=== PATIENT | female | born 1945 | race Caucasian/White ===

== ENCOUNTER 2019-09-23 12:03 | Emergency (ER) | payer MEDICARE, SELFPAY ==
--- NOTE | ~2019-09-23 | CT_ITS ---
EXAMINATION: CTA chest PE protocol DATE: 09/23/2019 14:24 INDICATION: Right chest pain. Shortness of breath. TECHNIQUE: Computed tomography angiography (CTA) of the chest was performed with 100 mL Omnipaque-350 intravenous contrast timed to evaluate the pulmonary arteries. Coronal maximum intensity projection 3D-reconstructions were created by the technologist. Automated exposure control and iterative reconst ruction technique were employed. Exam dose: 161.49 mGy-cm total exam DLP. COMPARISON: 09/15/2017 CT pulmonary scan FINDINGS: There is diagnostic contrast enhancement of the pulmonary arteries and no evidence of pulmo nary embolism. No thoracic aortic aneurysm or dissection. Normal heart size. No pericardial or pleural effusion. No hilar or mediastinal mass lesion or lymphadenopathy. There are calcified pulmonary granulomas, calcified hilar and mediastinal nodes as well as calcified granulomas of the liver and spleen, consistent with old granulomatous disease. Severe emphysematous changes of the lungs. Right and to a lesser extent posterior left apical scarrin g. There is focal infiltrate/atelectasis with air bronchograms in the superior segment of the left lower lobe, improved from the prominent consolidation noted in the superior segment particularly on 018, possibly some residual or new infiltrate or chronic residual scarring. There is mild focal infiltrate, atelectasis and/or scarring along the posterior aspect of the posteri or segment right upper lobe adjacent to the greater fissure and chest wall. IMPRESSION: No evidence of pulmonary embolism Severe emphysema Focal infiltrate, atelectasis or very possibly scarring in the superior segment of the left lower lob e, considerably improved compared to 09/15/2017 Mild focal infiltrate, atelectasis and/or scarring in the posterior segment of the right upper lobe Mild minimal posterior segment right upper lobe infiltrate or atelectasis along the greater fissure. Reviewed, dictated and finalized at [facility]. Reviewed, dictated and finalized at location [facility]. IMPRESSION: No evidence of pulmonary embolism Severe emphysema Focal infiltrate, atelectasis or very possibly scarring in the superior segment of the left lower lobe, considerably improved compared to 09/15/2017 Mild focal infiltrate, atelectasis and/or scarring in the posterior segment of the right upper lobe Mild minimal posterior segment right upper lobe infiltrate or atelectasis along the greater fissure.
--- NOTE | ~2019-09-23 | XR_ITS ---
XR chest 1V portable DATE: 09/23/2019 13:06 INDICATION: Chest pain TECHNIQUE: Portable upright AP chest on 09/23/2019 at 1305 hours COMPARISON: 09/15/2017 PA and lateral chest FINDINGS: There is prominent bilateral hyperinflation with flattening of the diaphragm, consistent wi th COPD. Normal heart size. Aortic calcification. Old pulmonary granulomatous disease. No pulmonary consolidation, significant pleural effusion, pulmonary vascular congestion or pneumothor ax is evident. IMPRESSION: COPD Reviewed, dictated and finalized at location [facility]. IMPRESSION: COPD
[2019-09-23 12:03] VITALS: BP 127/67; PULSE 102; RESP 24; TEMP 37.6; O2SAT 100
--- NOTE | 2019-09-23 12:30 | ECG_ITS ---
Measurements Intervals [place] Rate: 96 P: 79 ID: [id number] QRS: 74 QRSD: 121 T: 54 QT: 348 QTc: 440 Interpretive Statements SINUS RHYTHM RIGHT BUNDLE BRANCH BLOCK BASELINE ARTIFACT- I, II ABNORMAL ECG Electronically Signed On 09-23-2019 16:52:33 CDT by Moises Prieto D.O.
--- NOTE | 2019-09-23 12:31 | ED.CHESTPAIN ---
HPI - Chest Pain General Chief Complaint: Chest Pain Stated Complaint: chest pain Time Seen by Provider: 09/23/19 12:12 Source: patient and family Mode of arrival: EMS Limitations: no limitations History of Present Illness HPI narrative: Right upper chest pain, sharp, stabbing started yesterday. Has been constant since. Patient denies any fever, chills, nausea, vomiting, COVID-19 exposure. Patient denies any difficulty breathing. History of COPD, on 5 L oxygen, patent patient still smoking, lives alone. Brought to the emergency room by ambulance with her daughter who is at the bedside right now. Patient uses a walker at home. Patient reports that the pain gets worse with certain movement. Nothing make it better. Related Data Allergies Allergy/AdvReac Type Severity Reaction Status Date / Time omeprazole Allergy Mild Unknown Verified 09/23/19 12:25 acetaminophen Allergy Unknown Hives / Verified 09/23/19 12:25 Red Face codeine Allergy Unknown Hives / Verified 09/23/19 12:25 Red Face ibuprofen Allergy Unknown Hives / Verified 09/23/19 12:25 Red Face orphenadrine Allergy Unknown Unknown Verified 09/23/19 12:25 propacetamol Allergy Unknown Hives / Verified 09/23/19 12:25 Red Face ANTIPARKINSON Allergy Mild Unknown Uncoded 09/23/19 12:25 MEGLEMMON Allergy Unknown Hives / Uncoded 09/23/19 12:25 Red Face RUFEN AdvReac Severe HIVES Uncoded 09/23/19 12:25 Review of Systems Review of Systems: Narrative: CONSTITUTIONAL: Denies fever, chills, or sweats. EYES: Denies visual changes, redness, or discharge. ENT: Denies rhinorrhea, congestion, sore throat, or otalgia. CARDIOVASCULAR: Denies chest pain, palpitations, or edema. RESPIRATORY: Denies cough or dyspnea. GASTROINTESTINAL: Denies abdominal pain, nausea, vomiting, or diarrhea. GENITOURINARY: Denies dysuria or hematuria. SKIN: Denies rash or itching. MUSCULOSKELETAL: Denies back pain, joint pain, or myalgia. NEUROLOGIC: Denies headache, numbness, or weakness. PSYCHIATRIC: Denies anxiety or depression. [facility] Family History Family History Father Cerebrovascular accident, Onset Age: 52 Patient's father is Mother Patient's mother is Social History Social History Second hand tobacco smoke exposure: Yes Smoking end date: 05/02/09 Alcohol intake: never Gender identity (if verbalized by the patient): Female Exam Narrative: Exam Narrative: General appearance: Well-developed, well-nourished Skin: Normal color Head: Normocephalic, nontraumatic Eyes: Clear conjunctiva ENT: Oropharynx normal, ears normal, nose normal Neck: Supple, nontender Chest and respiratory: Airway patent, no respiratory distress, no accessory muscle use, no rash Heart: Regular rate/rhythm Abdomen: Soft, nontender, no organomegaly, quiet bowel sounds Vascular: Normal peripheral pulses, normal capillary refill. Musculoskeletal: Normal range of motion, nontender back Neurologic: Alert and oriented ?3, SCALE BALANCER is normal as tested, no gross motor deficit Course Course Emergency Course: Stable Consultations Date: 09/23/19 Time: 14:51 Vital Signs Vital signs: Vital Signs Temperature 37.6 C 09/23/19 12:03 Pulse Rate 102 H 09/23/19 12:03 Respiratory Rate 24 H 09/23/19 12:03 Blood Pressure 127/67 09/23/19 12:03 Pulse Oximetry 100 09/23/19 12:03 Temperature 37.6 C 09/23/19 12:03 Pulse Rate 86 09/23/19 13:14 Respiratory Rate 26 H 09/23/19 13:14 Blood Pressure 107/68 09/23/19 13:14 Pulse Oximetry 100 09/23/19 13:14 [facility] -
[2019-09-23 12:46] LABS: Basophils Percent Auto 0.4 % (0.2-1.2); Eosinophils Percent Auto 0.1 % (0-4.4); Hematocrit 29.7 % (37.0-47.0); Hemoglobin 9.1 g/dL (12.0-15.0); Immature Granulocyte Absolute 0.05 K/mm3 (0.00-0.031); Immature Granulocyte Percent A 0.7 % (0-0.5); Lymphocytes Absolute Auto 0.42 K/mm3 (0.9-3.2); Lymphocytes Percent Auto 5.8 % (18.3-44.2); Mean Corpuscular HGB Conc 30.6 g/dl (32-36); Mean Corpuscular Hemoglobin 31.8 pg (26-34); Mean Corpuscular Volume 103.8 fl (80-100); Monocytes Absolute Auto 0.7 K/mm3 (0.1-0.6); Monocytes Percent Auto 9.2 % (2.6-8.5); Neutrophils Absolute Auto 6.1 K/mm3 (1.3-6.7); Neutrophils Percent Auto 83.8 % (45.5-73.1); Platelet Count Result 176 k/mm3 (150-375); Red Blood Count 2.86 M/mm3 (4.2-5.4); Red Cell Distribution Width 12.6 % (11.5-14.5); White Blood Count 7.3 K/mm3 (4.5-10.0)
[2019-09-23 12:59] LABS: Alanine Aminotransferase 8 U/L (4-35); Albumin Level 4.3 g/dL (3.5-5.1); Alkaline Phosphatase 74 U/L (38-126); Aspartate Amino Transferase 23 U/L (14-36); Bilirubin,Total 0.7 mg/dL (0.2-1.3); Blood Urea Nitrogen 19 mg/dL (7-17); Calcium 9.7 mg/dL (8.4-10.2); Carbon Dioxide > 40 mmol/L (22-30); Chloride 96 mmol/L (98-107); Estimated CRCL calculation 28 ml/min; Estimated Glomerular Filt Rate 49; Glucose 87 mg/dL (65-105); Potassium 4.5 mmol/L (3.4-5.0); Sodium 141 mmol/L (137-145)
[2019-09-23 13:02] LABS: D Dimer 0.62 ug/mL (<0.48)
[2019-09-23 13:11] LABS: NT Pro B Type Natriuretic Pept 581 PG/ML (5-100); Troponin I < 0.012 ng/mL (0.000-0.034)
[2019-09-23 13:14] VITALS: BP 107/68; PULSE 86; RESP 26; O2SAT 100
[2019-09-23 15:18] VITALS: BP 123/60; PULSE 95; RESP 26; O2SAT 100
== END 2019-09-23 16:11 | disposition home or self-care (01) ==
PROVIDERS: Emergency Provider Emergency Medicine; PCP Family Medicine
DX: R07.9 Chest pain, unspecified (principal); J43.9 Emphysema, unspecified; F17.200 Nicotine dependence, unspecified, uncomplicated; I45.10 Unspecified right bundle-branch block; Z99.81 Dependence on supplemental oxygen
CPT/HCPCS: 36415; 71045; 71275; 80053; 83880; 84484; 85025; 85380; 93005; 99284; Q9967

== ENCOUNTER 2019-09-28 10:28 | Emergency (ER) | payer MEDICARE, SELFPAY ==
--- NOTE | ~2019-09-28 | XR_ITS ---
EXAMINATION: XR chest 2V DATE: 09/28/2019 10:52 INDICATION: Chest pain. TECHNIQUE: Frontal and lateral views of the chest were obtained. COMPARISON: Chest single view 09/23/2019, chest CT 09/23/2019 FINDINGS: The lungs are hyperexpanded with lucencies and architectural distortion, consistent with se bob emphysema. There are mild airspace opacities in right mid and upper lung zones and in left midlu ng zone. Calcified left lung nodules are consistent with old granulomatous disease. No pleural effusi on or pneumothorax. The heart size is normal. IMPRESSION: 1. Stable mild airspace opacities in right mid and upper lung zones and left midlung zone, consistent with atelectasis/scarring versus pneumonia. 2. Severe emphysema. Reviewed, dictated and finalized at location A. IMPRESSION: 1. Stable mild airspace opacities in right mid and upper lung zones and left mi dlung zone, consistent with atelectasis/scarring versus pneumonia. 2. Severe emphysema.
--- NOTE | 2019-09-28 10:40 | ECG_ITS ---
Measurements Intervals [place] Rate: 73 P: 83 IA: 133 QRS: 76 QRSD: 133 T: 58 QT: 373 QTc: 413 Interpretive Statements SINUS RHYTHM ATRIAL PREMATURE COMPLEX RIGHT BUNDLE BRANCH BLOCK BASELINE ARTIFACT- II, III, AVL ABNORMAL ECG Electronically Signed On 09-28-2019 10:54:40 CDT by Moises Prieto D.O.
[2019-09-28 10:41] VITALS: BP 138/63; PULSE 93; RESP 30; TEMP 36.9; O2SAT 100
--- NOTE | 2019-09-28 11:28 | ED.CHESTPAIN ---
HPI - Chest Pain General Chief Complaint: Chest Pain Stated Complaint: CHEST WALL PAIN Time Seen by Provider: 09/28/19 11:07 Source: patient Mode of arrival: wheelchair Limitations: no limitations History of Present Illness HPI narrative: This is a 74 year old female that presents to the ER for chest pain x 5 days. Reports the pain is constant. Relieved with Tylenol. Reports she was seen here for this 5 days ago and discharged from the ER. Reports she has continued to have pain and the pain has moved to the middle of her chest which prompted her to be seen. Reports a productive cough that is chronic for her. Denies any new shortness of breath. Related Data Home Medications Medication Instructions Recorded Confirmed albuterol sulfate [ProAir HFA] INHALATION 09/28/19 budesonide-formoterol [Symbicort] INHALATION 09/28/19 Allergies Allergy/AdvReac Type Severity Reaction Status Date / Time omeprazole Allergy Mild Unknown Verified 09/28/19 10:47 acetaminophen Allergy Unknown Hives / Verified 09/28/19 10:47 Red Face codeine Allergy Unknown Hives / Verified 09/28/19 10:47 Red Face ibuprofen Allergy Unknown Hives / Verified 09/28/19 10:47 Red Face orphenadrine Allergy Unknown Unknown Verified 09/28/19 10:47 propacetamol Allergy Unknown Hives / Verified 09/28/19 10:47 Red Face ANTIPARKINSON Allergy Mild Unknown Uncoded 09/28/19 10:47 MEGLEMMON Allergy Unknown Hives / Uncoded 09/28/19 10:47 Red Face RUFEN AdvReac Severe HIVES Uncoded 09/28/19 10:47 Review of Systems Review of Systems: Narrative: CONSTITUTIONAL: Denies fever CARDIOVASCULAR: Reports chest pain. Denies edema. RESPIRATORY: Reports cough. Denies dyspnea. All systems reviewed & are unremarkable except as noted in HPI and below PMFSH Past Medical History Medical History (Updated 09/28/19 @ 15:22 by Hazel Livingston PA-C) History of COPD Social History Social History (Updated 09/28/19 @ 15:11 by Hazel Livingston PA-C) Smoking status: Current every day smoker Second hand tobacco smoke exposure: Yes Smoking end date: 05/02/09 Alcohol intake: never Gender identity (if verbalized by the patient): Female Exam Narrative: Exam Narrative: GENERAL: Well-appearing, thin, and in no acute distress. HEAD: Normocephalic, atraumatic. EYES: EOMI. ENT: Nares clear, no rhinorrhea or epistaxis. Mucous membranes moist. Oropharynx without tonsillar hypertrophy exudate or other lesions. Bilateral TMs pearly ruvalcaba non-bulging NECK: Supple. No adenopathy or masses. No carotid bruits or JVD CHEST: Clear to auscultation. No respiratory distress. Mildly diminished throughout. No wheezes rales or rhonchi HEART: Regular rate and rhythm. No murmur heard. Normal peripheral pulses. EXTREMITIES: Normal range of motion. No edema. SKIN: Warm, dry, no rash. NEURO: No focal deficits. Alert and oriented x3. PSYCH: Normal mood and affect Course Vital Signs Vital signs: Vital Signs Temperature 98.4 F 09/28/19 10:41 Pulse Rate 93 09/28/19 10:41 Respiratory Rate 30 H 09/28/19 10:41 Blood Pressure 138/63 09/28/19 10:41 Pulse Oximetry 100 09/28/19 10:41 Temperature 98.4 F 09/28/19 10:41 Pulse Rate 75 09/28/19 13:24 Respiratory Rate 27 H 09/28/19 13:24 Blood Pressure 127/64 09/28/19 13:24 Pulse Oximetry 100 09/28/19 13:24 MDM - Chest Pain MDM Narrative Medical decision making narrative: Patient presents to the emergency department for right-sided chest pain x5 days. She is afebrile and nontoxic-appearing. Patient is stable on her 5 L oxygen nasal cannula that it she is on at home. CBC with stable anemia with hemoglobin of 9.2. Metabolic panel appears close to patient's baseline kidney function. Patient was given fluids in the ED. Baseline and 3-hour troponin are negative. D-dimer was elevated, but patient did just have a CTA of her chest 5 days ago which was negative. Suspect possibly elevated due to pneumonia. Pat
[2019-09-28 11:51] LABS: Basophils Percent Auto 0.6 % (0.2-1.2); Eosinophils Percent Auto 0.4 % (0-4.4); Hematocrit 30.8 % (37.0-47.0); Hemoglobin 9.2 g/dL (12.0-15.0); Immature Granulocyte Absolute 0.01 K/mm3 (0.00-0.031); Immature Granulocyte Percent A 0.2 % (0-0.5); Lymphocytes Absolute Auto 0.67 K/mm3 (0.9-3.2); Lymphocytes Percent Auto 14.4 % (18.3-44.2); Mean Corpuscular HGB Conc 29.9 g/dl (32-36); Mean Corpuscular Hemoglobin 31.2 pg (26-34); Mean Corpuscular Volume 104.4 fl (80-100); Mean Platelet Volume 9.9 fl (7.4-10.4); Monocytes Absolute Auto 0.3 K/mm3 (0.1-0.6); Monocytes Percent Auto 7.3 % (2.6-8.5); Neutrophils Absolute Auto 3.6 K/mm3 (1.3-6.7); Neutrophils Percent Auto 77.1 % (45.5-73.1); Platelet Count Result 278 k/mm3 (150-375); Red Blood Count 2.95 M/mm3 (4.2-5.4); Red Cell Distribution Width 12.6 % (11.5-14.5); White Blood Count 4.7 K/mm3 (4.5-10.0)
[2019-09-28 12:02] LABS: INR 0.9; Prothrombin Time 11.3 Seconds (11.1-14.7)
[2019-09-28 12:03] LABS: Partial Thromboplastin Time 33.5 SECONDS (22.3-36.8)
[2019-09-28 12:05] LABS: D Dimer 1.37 ug/mL (<0.48)
[2019-09-28 12:08] VITALS: BP 124/81; PULSE 75; RESP 16; O2SAT 100
[2019-09-28 12:08] LABS: Blood Urea Nitrogen 30 mg/dL (7-17); Calcium 10.2 mg/dL (8.4-10.2); Carbon Dioxide > 40 mmol/L (22-30); Chloride 94 mmol/L (98-107); Estimated CRCL calculation 22 ml/min; Estimated Glomerular Filt Rate 40; Glucose 100 mg/dL (65-105); Potassium 4.3 mmol/L (3.4-5.0); Sodium 140 mmol/L (137-145)
[2019-09-28 12:13] LABS: Troponin I < 0.012 ng/mL (0.000-0.034)
[2019-09-28 13:24] VITALS: BP 127/64; PULSE 75; RESP 27; O2SAT 100
[2019-09-28 14:40] LABS: Troponin I 0.013 ng/mL (0.000-0.034)
[2019-09-28] MEDS: AZITHROMYCIN 250 MG TABLET 500 MG PO (14:51)
[2019-09-28] MEDS: AMOXICILLIN/CLAVULANATE K 875-125 MG TAB 1 TABLET PO (14:51)
[2019-09-28] MEDS: SODIUM CHLORIDE 0.9% IV 500 ML 999 ML IV CONT (14:52)
[2019-09-28 15:42] VITALS: BP 144/85; PULSE 81; RESP 26; O2SAT 98
== END 2019-09-28 15:55 | disposition home or self-care (01) ==
PROVIDERS: Physician Assistant; Emergency Provider Emergency Medicine; PCP Family Medicine
DX: J18.9 Pneumonia, unspecified organism (principal); Z77.22 Contact with and (suspected) exposure to environmental tobacco smoke (acute) (chronic); J43.9 Emphysema, unspecified; Z87.891 Personal history of nicotine dependence; I49.1 Atrial premature depolarization; I45.10 Unspecified right bundle-branch block
CPT/HCPCS: 36415; 71046; 80048; 84484; 85025; 85380; 85610; 85730; 93005; 96360; 99284; A9270; J7040

== ENCOUNTER 2019-11-23 15:43 | Inpatient (IN) | payer MEDICARE, SELFPAY ==
[2019-11-23] VITALS (10 sets, daily range): BP systolic 110–134; BP diastolic 61–86; PULSE 76–92; RESP 16–24; TEMP 36.6–37.6; O2SAT 94–100; BMI 16.6
--- NOTE | ~2019-11-23 | XR_ITS ---
XR chest 1V portable DATE: 11/23/2019 16:32 INDICATION: Shortness of breath, fever. History of COPD and asthma. TECHNIQUE: Portable AP view on 11/23/2019 at 1631 hours COMPARISON: 09/28/2019 AP and lateral chest FINDINGS: There is bilateral pulmonary hyperinflation, suggesting COPD. There is an approximately 1.5 cm-2 cm area of asymmetric density overlying the central right upper ben ng, of uncertain significance. Pulmonary mass lesion is not excluded. CT thorax examination is recomm ended for further evaluation. There is interval mild patchy infiltrate and/atelectasis in the left lower lung since 09/28/2019. There are calcified pulmonary granulomas consistent with old granulomatous disease. Heart size is within normal range. Is aortic calcification. There is diffuse osteopenia. IMPRESSION: Ill-defined opacity of right upper lobe; pulmonary mass lesion is not excluded. Lung canc er should be considered. CT thorax is recommended. New patchy infiltrate and/atelectasis in the left lower lung since 09/28/2019 Bilateral hyperinflation suggesting COPD Prominent diffuse osteopenia Reviewed, dictated and finalized at location [facility]. IMPRESSION: Ill-defined opacity of right upper lobe; pulmonary mass lesion is n ot excluded. Lung cancer should be considered. CT thorax is recommended. New patchy infiltrate and/atelectasis in the left lower lung since 09/28/2019 Bilateral hyperinflation suggesting COPD Prominent diffuse osteopenia
--- NOTE | ~2019-11-23 | CT_ITS ---
EXAMINATION: CT chest w con EXAM DATE: 11/24/2019 09:23 INDICATION: Ill-defined opacity of the right upper lobe. Abnormal chest x-ray. TECHNIQUE: Spiral CT of the chest following intravenous injection of 75 mL Omnipaque 350. Axial, cor onal and sagittal images were reviewed. Coronal maximum intensity pixel images of chest reviewed. T he dose-length product (DLP) for this examination was 168.41 mGy-cm. The exposure was tailored accor ding to patient size (auto mA exposure control), and iterative reconstruction (ASIR) was used as namita tional dose reduction technique. Comparison is made to prior examination from 09/23/2019. FINDINGS: There is severe emphysema. Scattered regions of lung scarring at the lung apices, along th e fissures and in the left lower lobe with significant left lower lobe volume loss. Overall the lungs are hyperinflated and there is narrow cardiac silhouette. Compared to prior study in 2018, significa nt interval increase in the volume loss and atelectasis of the left lower lobe. Difficult to exclude small amount of left lower lobe acute infectious process. Scattered calcified lung parenchymal, liver and splenic granulomas. There are no pleural or pericardial effusions. There is no mediastinal, hilar or axillary lymphaden opathy. There is no pneumothorax. There is mild coronary arterial calcification, arterial scleros is. Upper abdomen is unremarkable. There is thoracic spondylosis without osteoblastic or osteolyti c lesions identified. No central pulmonary emboli. IMPRESSION: 1. Significant progression left lower lobe volume loss, likely atelectasis but difficult to totally exclude superimposed acute infectious process. 2. Other scattered regions of scarring, postinfectious residua. 3. Severe emphysema and hyperinflation. Reviewed, dictated and finalized at location G.
--- NOTE | 2019-11-23 16:08 | ECG_ITS ---
Measurements Intervals [place] Rate: 79 P: 81 DC: 139 QRS: 79 QRSD: 118 T: 72 QT: 375 QTc: 432 Interpretive Statements SINUS RHYTHM ATRIAL PREMATURE COMPLEX INCOMPLETE RIGHT BUNDLE BRANCH BLOCK BORDERLINE ECG Electronically Signed On 11-23-2019 19:43:17 CDT by Moises Prieto D.O.
[2019-11-23 16:19] LABS: Basophils Percent Auto 0.6 % (0.2-1.2); Eosinophils Percent Auto 0.6 % (0-4.4); Hematocrit 28.8 % (37.0-47.0); Hemoglobin 8.6 g/dL (12.0-15.0); Immature Granulocyte Absolute 0.02 K/mm3 (0.00-0.031); Immature Granulocyte Percent A 0.4 % (0-0.5); Lymphocytes Absolute Auto 0.81 K/mm3 (0.9-3.2); Lymphocytes Percent Auto 15.2 % (18.3-44.2); Mean Corpuscular HGB Conc 29.9 g/dl (32-36); Mean Corpuscular Hemoglobin 31.4 pg (26-34); Mean Corpuscular Volume 105.1 fl (80-100); Monocytes Absolute Auto 0.4 K/mm3 (0.1-0.6); Monocytes Percent Auto 8.1 % (2.6-8.5); Neutrophils Percent Auto 75.1 % (45.5-73.1); Platelet Count Result 200 k/mm3 (150-375); Red Blood Count 2.74 M/mm3 (4.2-5.4); Red Cell Distribution Width 14.1 % (11.5-14.5); White Blood Count 5.3 K/mm3 (4.5-10.0)
[2019-11-23 16:32] LABS: Lactic Acid Reflex 1.1 mmol/L (0.7-2.1)
[2019-11-23 16:41] LABS: Blood Urea Nitrogen 15 mg/dL (7-17); Calcium 9.3 mg/dL (8.4-10.2); Carbon Dioxide > 40 mmol/L (22-30); Chloride 95 mmol/L (98-107); Estimated CRCL calculation 35 ml/min; Estimated Glomerular Filt Rate > 60; Glucose 114 mg/dL (65-105); Potassium 4.2 mmol/L (3.4-5.0); Sodium 139 mmol/L (137-145)
[2019-11-23 16:46] LABS: NT Pro B Type Natriuretic Pept 959 PG/ML (5-100); Troponin I < 0.012 ng/mL (0.000-0.034)
[2019-11-23 17:31] LABS: INR 0.9; Prothrombin Time 11.7 Seconds (11.1-14.7)
[2019-11-23 17:34] LABS: Partial Thromboplastin Time 26.7 SECONDS (22.3-36.8)
--- NOTE | 2019-11-23 17:52 | ED.CHESTPAIN ---
HPI - Chest Pain General Chief Complaint: Chest Pain Stated Complaint: cp/sob/weakness Time Seen by Provider: 11/23/19 16:45 Source: patient and family Limitations: no limitations History of Present Illness HPI narrative: 74-year-old female history of severe COPD and on 5 L of oxygen at home at baseline Since yesterday afternoon or evening she complains of diffuse pain throughout the left side of her chest shoulder and upper arm Pain is been relatively constant for probably 18 hours at this point The case seems to be that in some positions or with some movements she has more pain which makes her more anxious and more short of breath There was a questionable subjective fever noted at triage but that is not amongst her complaints to me She is a heavy smoker and has hypertension but does not have known coronary disease Pain location: left chest and lateral Pain radiation: left shoulder and left scapula Quality: aching Exacerbating factors: palpation and movement Related Data Home Medications Medication Instructions Recorded Confirmed albuterol sulfate [ProAir HFA] INHALATION 09/28/19 Allergies Allergy/AdvReac Type Severity Reaction Status Date / Time omeprazole Allergy Mild Unknown Verified 11/23/19 16:17 acetaminophen Allergy Unknown Hives / Verified 11/23/19 16:17 Red Face codeine Allergy Unknown Hives / Verified 11/23/19 16:17 Red Face ibuprofen Allergy Unknown Hives / Verified 11/23/19 16:17 Red Face orphenadrine Allergy Unknown Unknown Verified 11/23/19 16:17 propacetamol Allergy Unknown Hives / Verified 11/23/19 16:17 Red Face ANTIPARKINSON Allergy Mild Unknown Uncoded 10/24/19 14:06 MEGLEMMON Allergy Unknown Hives / Uncoded 10/24/19 14:06 Red Face RUFEN AdvReac Severe HIVES Uncoded 10/24/19 14:06 Review of Systems Review of Systems: All systems reviewed & are unremarkable except as noted in HPI and below Constitutional: Constitutional: Denies chills, Reports fatigue, Denies headache(s) and Denies night sweats Eyes: Eyes: Reports no additional eye complaints ENT: Denies headache(s), Denies hoarseness, Denies nasal congestion and Denies sore throat Cardiovascular: Cardiovascular: Denies leg edema, Denies palpitations and Denies dyspnea Respiratory: Respiratory: Denies cough, Reports dyspnea and Denies wheezing Gastrointestinal: Gastrointestinal: Denies abdominal pain, Denies diarrhea, Denies nausea and Denies vomiting Genitourinary: Genitourinary: Denies hematuria, Denies urinary frequency and Denies dysuria Musculoskeletal: Musculoskeletal: Denies abnormal gait, Denies deformity, Denies joint swelling, Denies muscle weakness and Denies numbness Integumentary/Breasts: Skin/Breast: Denies rash, Denies unusual bruising and Denies wounds Neurologic: Denies abnormal gait, Denies headache(s), Denies focal weakness, Denies loss of vision and Denies numbness Psychiatric: Psychiatric: Reports no additional psychiatric complaints Endocrine: Endocrine: Denies fatigue and Denies palpitations Hematologic/Lymphatic: Hematologic/Lymphatic: Denies easy bleeding and Denies easy bruising Allergic/Immunologic: Allergic/Immunologic: Denies wheezing PMFSH Past Medical History Medical History History of COPD Family History Family History Father Cerebrovascular accident, Onset Age: 52 Patient's father is Mother Patient's mother is Social History Social History (System 10/24/19 @ 14:06 by Libby Gold) Smoking status: Current every day smoker Second hand tobacco smoke exposure: Yes Smoking end date: 05/02/09 Alcohol intake: never Gender identity (if verbalized by the patient): Female Exam Const: General: no acute distress, well developed and ill appearing Nutritional Appearance: thin Orientation/consciousn
[2019-11-23] MEDS: AZITHROMYCIN 250 MG TABLET 500 MG PO (20:13)
[2019-11-23 21:37] LABS: Troponin I < 0.012 ng/mL (0.000-0.034)
--- NOTE | 2019-11-23 23:36 | ADMGEN ---
This patient, Violet Barnett, was admitted to [facility] Surg Room 331-01. Patient/family oriented to hospital policies and general routines including ID bracelet, bed and alarms, visiting hours, pain management, procedures, bathroom and other care routines, personal items, smoking policy, room service/diet, and visiting hours. Valuables list has been completed. Information on how to activate the Rapid Response Team has been discussed. Patient/Family are encouraged to report perceived risks to care and to ask questions if they do not understand what they are told or what they should do.
[2019-11-24] VITALS (13 sets, daily range): BP systolic 106–151; BP diastolic 50–75; PULSE 80–101; RESP 18–24; TEMP 36.4–37.1; O2SAT 97–100
--- NOTE | 2019-11-24 | ECHO_ITS ---
Patient Info Name: Violet Barnett Age: 74 years : 1945 Gender: Female Ht: 62 in Wt: 90 lbs BSA: 1.33 m2 HR: 83 bpm BP: 110 / 53 mmHg Heart Rhythm: Sinus Rhythm Technical Quality: Good Exam Date: 11/24/2019 1:12 PM Exam Location: [facility] Card Pulmonary Patient Status: Inpatient Admit Date: 11/23/2019 Staff Ordering Physician: Fina Andrews PA-C Supervisor [employer]: Cathy Edwards RDCS Attending Provider: Fina Andrews PA-C Referring Physician: Juliana BARAJAS; Exam Type: CA echo doppler color flow Study Info Complete two-dimensional, color flow and Doppler transthoracic echocardiogram is performed. Summary 1. Left ventricular systolic function is normal, estimated at 65-70%. 2. There is no increased left ventricular wall thickness. 3. The left ventricular diastolic function is normal. 4. There is no aortic valve stenosis. 5. There is trace mitral valve regurgitation. 6. There is trace tricuspid valve regurgitation. 7. No pulmonary hypertension, estimated pulmonary arterial systolic pressure is 26 mmHg. Left Ventricle Left ventricular chamber dimension is normal. Left ventricular systolic function is normal, estimated at 65-70%. There is no increased left ventricular wall thickness. The left ventricular diastolic function is normal. E/e' 8.4 is normal. Right Ventricle Right ventricular chamber dimension is normal. Right ventricular systolic function is normal. Left Atria Left atrial chamber dimension is normal. Right Atria Right atrial chamber dimension is normal. Aortic Valve The aortic valve is not well visualized. There is mild aortic valve sclerosis. There is no aortic valve stenosis. There is no aortic valve regurgitation. Pulmonic Valve The pulmonic valve is not well visualized. There is trace pulmonic regurgitation. Mitral Valve The mitral valve has thickened leaflets. There is trace mitral valve regurgitation. The mitral valve annulus is mildly calcified. Tricuspid Valve The tricuspid valve leaflets are normal. There is trace tricuspid valve regurgitation. No pulmonary hypertension, estimated pulmonary arterial systolic pressure is 26 mmHg. Pericardium/Pleural The pericardium appears normal. There is no pericardial effusion. Inferior Vena Cava Normal inferior vena cava with >50% collapse upon inspiration consistent with normal right atrial pressure, 5 mmHg. Aorta The aortic root size at the sinus of Valsalva is normal. There is mild aortic atherosclerosis. Left Ventricular Outflow Tract Name Value Normal LVOT 2D LVOT Diameter 2.0 cm LVOT Doppler LVOT Peak Gradient 6 mmHg LVOT Mean Gradient 3 mmHg LVOT VTI 24 cm LVOT VTI/AV VTI Ratio 1.0 LVOT Stroke Volume 73 ml LVOT CO 5.2 l/min LVOT CI 3.9 l/min/m2 Pulmonic Valve Name
[2019-11-24 00:47] LABS: SARS-CoV-2 RNA PCR Negative
--- NOTE | 2019-11-24 02:53 | PCRCNOTE ---
PT BEING TESTED FOR COVID-19. AEROSOL TREATMENTS ARE NOT RECOMMENDED. DISCUSSED SITUATION WITH ARNOLD LOPEZ.
[2019-11-24] MEDS: LACTATED RINGERS 1,000 ML 50 ML IV CONT (03:44)
[2019-11-24] MEDS: predniSONE 20 MG TABLET 60 MG PO (08:29)
--- NOTE | 2019-11-24 12:35 | PM.IMHP ---
H&P: HPI History of Present Illness Chief complaint: pneumonia, copd Narrative: Violet Barnett is a 74 year old female with PMH significant for with chronic hypoxic respiratory failure with chronic 5 liter per nasal cannula oxygen requirement, COPD, and gastroesophageal reflux disease who presented to the emergency department yesterday evening for the evaluation of left-sided chest pain and dyspnea. She reports that her pain began night. She reports that the pain radiated into the left neck and shoulder blade. She described the pain as aching. It was worse with certain movements and with deep inspiration. It was also painful to palpation. Her pain persisted so her daughter encouraged her to proceed to the ED. She reports increased dyspnea recently. She reports associated cough productive of clear/white sputum. She reports increased sputum production. She is unsure if she has had any fevers but does note increased chills. She also reports increased fatigue. Additionally, she reports increased heartburn recently and dysphagia with solid foods. Initial labs on presentation to the ED revealed WBC 5,300 with a neutrophil predominance, hemoglobin 8.6, hematocrit 28.8, MCV 105.1, sodium 139, potassium 4.2, chloride 95, CO2 >40, BUN 15, Cr 0.9, glucose 114, lactic acid 1.1, calcium 9.3, troponin <0.012x2, and BNP 959. EKG demonstrated sinus rhythm, premature atrial complexes, incomplete right bundle branch block, and QTc 432. CXR demonstrated ill-defined opacity of the RUL with pulmonary mass not excluded, new patchy infiltrate and atelectasis in the left lower lung since imaging performed 09/27, and bilateral hyperinflation. She was tested for COIVD-19 and admitted to the hospitalist service for further evaluation and management. COVID-19 testing was negative. At the time of my evaluation, she is comfortable and has no complaints of chest pain or worsening dyspnea compared to her baseline. Review of Systems Review of Systems: Narrative: Constitutional:Reports chills. Unsure of subjective fever. Denies recent sick contacts. Reports generalized fatigue. Eyes: Denies vision change. The patient wears corrective lenses. No additional eye complaints. ENT: Reports that she is hard of hearing. Denies nasal congestion. Reports dysphagia for solid foods. Denies odynophagia. Reports post-nasal drip. Cardiovascular: As above. Reports prior chest pain which has resolved. Denies PND and orthopnea. Respiratory: Reports chronic dyspnea with 5L per [place] oxygen requirement at baseline. Reports cough and increased sputum production. Gastrointestinal: Denies abdominal pain, nausea, and vomiting. Reports occasional constipation. Denies diarrhea. Genitourinary: Denies dysuria, frequency, urgency, and hesitancy. Musculoskeletal: Denies joint pain and swelling. Denies muscle cramps and weakness. Skin: Denies lesions and wounds. Neurologic: Denies focal weakness, paresthesias, confusion, and speech change. Psychiatric: Denies mood change. Denies anxiety and depression. Hematologic: Denies easy bruising and bleeding. All systems reviewed & are unremarkable except as noted in HPI and below PMFSH Past Medical History Medical History Chronic respiratory failure COPD (chronic obstructive pulmonary disease) GERD with esophagitis Hemorrhoids History of DVT (deep vein thrombosis) Osteoporosis Surgical History Surgical History H/O breast biopsy H/O inguinal hernia repair History of cataract removal with insertion of prosthetic lens History of tonsillectomy History of tubal ligation Family History Family History Father Cerebrovascular accident, Onset Age: 52 Patient's father is Mother Patient's mother is Coronary artery disease Social History Social H
--- NOTE | 2019-11-24 14:46 | PCSTNOTE ---
Bedside swallow evaluation completed. Please see ST evaluation for detailed results and recommendations.
[2019-11-24] MEDS: ALBUTEROL SULFATE NEB 2.5 MG/0.5 ML INH INHALATION ×2 (15:13→21:11)
[2019-11-24] MEDS: IPRATROPIUM BR 0.02% INH SOLN 0.5 MG/2.5 ML VIAL INHALATION ×2 (15:13→21:11)
[2019-11-24] MEDS: AZITHROMYCIN 250 MG TABLET 500 MG PO (18:02)
[2019-11-24] MEDS: ENOXAPARIN 40 MG/0.4 ML SYRINGE SUB-Q (21:37)
[2019-11-24] MEDS: FAMOTIDINE 20 MG TABLET PO (21:38)
[2019-11-25] VITALS (13 sets, daily range): BP systolic 125–163; BP diastolic 57–70; PULSE 71–112; RESP 16–24; TEMP 36.8–37.1; O2SAT 96–100
[2019-11-25] MEDS: IPRATROPIUM BR 0.02% INH SOLN 0.5 MG/2.5 ML VIAL INHALATION ×4 (02:00→21:10)
[2019-11-25] MEDS: ALBUTEROL SULFATE NEB 2.5 MG/0.5 ML INH INHALATION ×4 (02:01→21:10)
[2019-11-25 06:43] LABS: Basophils Percent Auto 0.2 % (0.2-1.2); Hematocrit 24.3 % (37.0-47.0); Hemoglobin 7.7 g/dL (12.0-15.0); Immature Granulocyte Absolute 0.01 K/mm3 (0.00-0.031); Immature Granulocyte Percent A 0.2 % (0-0.5); Lymphocytes Absolute Auto 0.72 K/mm3 (0.9-3.2); Lymphocytes Percent Auto 17.1 % (18.3-44.2); Mean Corpuscular HGB Conc 31.7 g/dl (32-36); Mean Corpuscular Hemoglobin 31.8 pg (26-34); Mean Corpuscular Volume 100.4 fl (80-100); Mean Platelet Volume 10.4 fl (7.4-10.4); Monocytes Absolute Auto 0.5 K/mm3 (0.1-0.6); Monocytes Percent Auto 11.8 % (2.6-8.5); Neutrophils Percent Auto 70.7 % (45.5-73.1); Platelet Count Result 163 k/mm3 (150-375); Red Blood Count 2.42 M/mm3 (4.2-5.4); Red Cell Distribution Width 14.1 % (11.5-14.5); White Blood Count 4.2 K/mm3 (4.5-10.0)
[2019-11-25 07:01] LABS: Alanine Aminotransferase 6 U/L (4-35); Albumin Level 3.4 g/dL (3.5-5.1); Alkaline Phosphatase 54 U/L (38-126); Aspartate Amino Transferase 24 U/L (14-36); Bilirubin,Total 0.2 mg/dL (0.2-1.3); Blood Urea Nitrogen 24 mg/dL (7-17); Calcium 9.3 mg/dL (8.4-10.2); Carbon Dioxide 34 mmol/L (22-30); Chloride 98 mmol/L (98-107); Estimated CRCL calculation 32 ml/min; Estimated Glomerular Filt Rate > 60; Glucose 86 mg/dL (65-105); Magnesium 2.1 mg/dL (1.6-2.3); Sodium 136 mmol/L (137-145)
[2019-11-25] MEDS: predniSONE 20 MG TABLET 60 MG PO (08:22)
[2019-11-25] MEDS: FAMOTIDINE 20 MG TABLET PO ×2 (08:22→20:25)
--- NOTE | 2019-11-25 10:18 | WPDGICN ---
Assessment and Plan Assessment and plan (1) GERD with esophagitis: Code(s): K21.0 - Gastro-esophageal reflux disease with esophagitis Status: Acute Assessment and Plan: it seems chronic problem but had flare up this admission, continue with medical treatment. Her last EGD 2017 with no major findings only minimal reflux esophagitis without stricture given ongoing respiratory status with advanced emphysema, continue conservative treatment should be ok to restart nexium as outpatient (she was taking it before) (2) Dysphagia: Code(s): R13.10 - Dysphagia, unspecified Status: Acute Assessment and Plan: she is eating regular diet and tolerating. esophagus dilated empirically 2017 but no strictures hold off on EGD for now unless worsening symptoms given respiratory status (3) Pneumonia: Code(s): J18.9 - Pneumonia, unspecified organism Status: Acute Assessment and Plan: on antibiotics, CT chest reviewed COVID-19 negative (4) Atypical chest pain: Code(s): R07.89 - Other chest pain Status: Acute (5) COPD, severe: Code(s): J44.9 - Chronic obstructive pulmonary disease, unspecified Status: Acute (6) Left-sided chest pain: Code(s): R07.9 - Chest pain, unspecified Status: Acute GI Consult Note Consult date/time: 11/25/19 10:18 Reason for consult: gerd HPI: Violet Barnett is a 74 year old female with history of COPD/chronic hypoxic respiratory failure with chronic 5 liter per nasal cannula oxygen requirement, GERD and dysphagia with last EGD by Dr Sahu in 2017, only found grade I distal esophagitis, normal tubular esophagus otherwise but was dilated empirically with Marks 50Fr. She came to ER with new onset of pain in left chest radiating to neck and also epigastric area. She says that was using nexium at some point but one time when her prescription was not ready in the pharmacy for pickup instead tried [place]ierra[place] gummies which helping better than ppi therefore she is not using any PPI now. Also she normally tends to eat small portions at time to swallow better. This morning she is eating regular breakfast with eggs and sausage. Evaluation in the ER showed CT chest wth significant progression left lower lobe volume loss, likely atelectasis but difficult to totally exclude superimposed acute infectious process and she is been treated for pneumonia. Review of Systems Review of Systems: All systems reviewed & are unremarkable except as noted in HPI and below Constitutional: Constitutional: Denies chills Eyes: Eyes: Denies blurry vision Cardiovascular: Cardiovascular: Reports chest pain Respiratory: Respiratory: Reports cough and Reports dyspnea on exertion Gastrointestinal: Gastrointestinal: Denies abdominal pain Genitourinary: Genitourinary: Denies flank pain Musculoskeletal: Musculoskeletal: Reports neck pain Integumentary/Breasts: Skin/Breast: Denies dry skin Neurologic: Denies confusion Psychiatric: Psychiatric: Denies depression Endocrine: Endocrine: Denies cold intolerance Hematologic/Lymphatic: Hematologic/Lymphatic: Denies easy bruising PMFSH Past Medical History Medical History Chronic respiratory failure COPD (chronic obstructive pulmonary disease) GERD with esophagitis Hemorrhoids History of DVT (deep vein thrombosis) Osteoporosis Surgical History Surgical History H/O breast biopsy H/O inguinal hernia repair History of cataract removal with insertion of prosthetic lens History of tonsillectomy History of tubal ligation Family History Family History Father Cerebrovascular accident, Onset Age: 52 Patient's father is Mother Patient's mother is Coronary artery disease Social History
[2019-11-25 10:28] LABS: Iron 67 ug/dL (37-170)
--- NOTE | 2019-11-25 11:55 | PM.CNPUL ---
Assessment and Plan Assessment and plan (1) Community acquired bacterial pneumonia: Code(s): J15.9 - Unspecified bacterial pneumonia Status: Acute Assessment and Plan: LLL consolidation vs atelectesis but could be CAP. Not sure if this was related to the left sided chest pain or not but warrants seven days of antibiotics - d/c prednisone - d/c ceftriaxone and azithromycin - Levaquin 500 mg PO OD for five more days starting tomorrow - can be discharged home from pulmonary perspective (2) COPD, severe: Code(s): J44.9 - Chronic obstructive pulmonary disease, unspecified Status: Acute Assessment and Plan: - No signs of COPD exacerbation - continue home O2 3 liters at rest and 4 liters with exertion - resume home inhaler regimen on discharge - encourage smoking cessation History of Present Illness History of Present Illness Consult date: 11/25/19 Chief complaint: pneumonia, copd Narrative: 74 y/o female with severe COPD on home O2 presents with severe Left sided chest pain radiating to her left jaw and mouth. She's a very poor historian so the history is limited. The pain go worse with exertion and with certain movements. She denies fever, chills or sweats. Sputum is most clear but someitmes yellow. CT chest showed no central or clinically significant P.E. and she has minimal risk factors. CT chest did show severe bilateral emphysema with scatterd areas of focal fibrosis. There was also atelectesis vs pneumonic infiltrates in the LLL which look worse when compared to CT scan in August 2019. WBC was normal on admission. She denies increased dyspnea, wheezing or chest tightness. Today she feels better and she says there is less sputum production. A sputum culture has been negative for significant pathogens so far. Review of Systems Review of Systems: All systems reviewed & are unremarkable except as noted in HPI and below PMFSH Past Medical History Medical History Chronic respiratory failure COPD (chronic obstructive pulmonary disease) GERD with esophagitis Hemorrhoids History of DVT (deep vein thrombosis) Osteoporosis Surgical History Surgical History H/O breast biopsy H/O inguinal hernia repair History of cataract removal with insertion of prosthetic lens History of tonsillectomy History of tubal ligation Family History Family History Father Cerebrovascular accident, Onset Age: 52 Patient's father is Mother Patient's mother is Coronary artery disease Social History Social History (Updated 11/24/19 @ 13:29 by Fina Andrews PA-C) Social History: Mrs. Barnett resides at home alone. She is . Her 2 years ago. Her neighbors and daughter, Peace Jovel, assist her and check on her daily. 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 She smokes 1 pack of cigarettes per week. She wishes to be a full code. She has designated her daughter Peace Jovel as her surrogate decision maker. She denies alcohol or other substance use. Smoking packs per day: 1 Smoking cigarettes per day: 20.0 Years smoked: 50 Smoking pack-years: 50.00 Smoking status: Current every day smoker Second hand tobacco smoke exposure: Yes Alcohol intake: never Substance use: never Living arrangements: alone Occupation/Education: retired Gender identity (if verbalized by the patient): Female Spiritual care concerns: No Meds Home Medications and Allergies Home Medications Medication Instructions Recorded Confirmed Type albuterol sulfate [ProAir HFA] 2 puff INHALATION QID 09/28/19 11/23/19 History acetaminophen [Tylenol] 650 mg PO Q4H PRN 11/23/19 11/23/19 History ipratropium-albuterol 3 ml INHALATION Q4H PRN 11/23/19 11/23/19 History Allergies Allergy/Adv
--- NOTE | 2019-11-25 15:38 | PM.IMPN ---
Progress Note: A&P Assessment and Plan (1) Community acquired bacterial pneumonia: Code(s): J15.9 - Unspecified bacterial pneumonia Status: Acute Assessment and Plan: She reports increased dyspnea, chest discomfort, cough, and sputum production. She also reports chills. CXR revealed new patchy infiltrate and atelectasis in the left lower lung. COVID-[address] was performed due to concern for right upper lobe mass and revealed left lower lobe volume loss which suggests atelectasis with possible superimposed acute infectious process. Her clinical picture is concerning for pneumonia. Blood cultures reveal no growth to date. Sputum cultures reveal mixed bacterial roya and is still pending. Urine legionella and pneumococcal antigens are pending. Continue bronchodilators. Continue home supplemental oxygen. Continue chest physiotherapy which is helping her to mobilize secretions. Appreciate pulmonology input. Ceftriaxone and azithromycin were discontinued and levaquin was initiated. Plan to treat for 5 additional days starting tomorrow. She is stable for discharge from a pulmonary perspective. Continue to monitor. (2) COPD, severe: Code(s): J44.9 - Chronic obstructive pulmonary disease, unspecified Status: Acute Assessment and Plan: Pulmonology was consulted and input is greatly appreciated.She is not felt to be in an acute COPD exacerbation. Prednisone was discontinued. Continue nebulized bronchodilators. Continue to encourage smoking cessation. Continue home supplemental oxygen. (3) GERD with esophagitis: Code(s): K21.0 - Gastro-esophageal reflux disease with esophagitis Status: Acute Assessment and Plan: She reports frequent heartburn sx. She uses [place] at home PRN. She is not on PPI therapy but I discussed omeprazole with the patient and her daughter at the bedside and they report no allergies to omeprazole. They report she stopped taking it because it was no longer covered by insurance. Will switch pepcid to protonix and add carafate. Continue TUMS PRN. I discussed that she should not take [place] as it contains aspirin and this is not good for stomach lining. GI is on board and has recommended conservative treatment given her respiratory status with advanced emphysema. (4) Chronic respiratory failure: Code(s): J96.10 - Chronic respiratory failure, unspecified whether with hypoxia or hypercapnia Status: Acute Assessment and Plan: Secondary to COPD. She is on her baseline home oxygen requirement. (5) Elevated brain natriuretic peptide (BNP) level: Code(s): R79.89 - Other specified abnormal findings of blood chemistry Status: Acute Assessment and Plan: Echocardiogram was unremarkable with normal left ventricular systolic function, estimated at 65-70%, no increased left ventricular wall thickness, normal left ventricular diastolic function, no aortic valve stenosis, trace mitral valve regurgitation, trace tricuspid valve regurgitation, and no pulmonary hypertension with estimated pulmonary arterial systolic pressure of 26 mmHg. BNP is likely elevated given her age. (6) Left-sided chest pain: Code(s): R07.9 - Chest pain, unspecified Status: Acute Assessment and Plan: Likely secondary to pneumonia. Her pain has improved significantly on her current regimen. Troponin and EKG were negative for ACS. Echocardiogram revealed normal systolic function with no increased LV thickness and normal diastolic function with no wall motion abnormalities. Additional considerations include PUD/gastritis and I have consulted GI and we will add PPI BID and treat conservatively given her respiratory status. Continue to monitor. (7) Dysphagia: Code(s): R13.10 - Dysphagia, unspecified Status: Acute Assessment and Plan: She reports increasing dysphagia for solid foods. She unde
[2019-11-25] MEDS: CALCIUM CARBONATE (TUMS) 500 MG (200 MG ELEMENTAL) PO (16:02)
[2019-11-25 16:10] LABS: Hematocrit 27.2 % (37.0-47.0); Hemoglobin 8.4 g/dL (12.0-15.0)
[2019-11-25] MEDS: SUCRALFATE SUSP 100 MG/ML 10 ML UDC 1000 MG PO ×2 (17:51→20:25)
[2019-11-25] MEDS: PANTOPRAZOLE 40 MG TABLET PO (20:25)
[2019-11-25] MEDS: ENOXAPARIN 40 MG/0.4 ML SYRINGE SUB-Q (20:26)
[2019-11-26] VITALS (10 sets, daily range): BP systolic 98–129; BP diastolic 48–68; PULSE 78–103; RESP 16–24; TEMP 36.9–37.1; O2SAT 97–100; BMI 16.6
[2019-11-26] MEDS: ALBUTEROL SULFATE NEB 2.5 MG/0.5 ML INH INHALATION ×4 (01:57→19:44)
[2019-11-26] MEDS: IPRATROPIUM BR 0.02% INH SOLN 0.5 MG/2.5 ML VIAL INHALATION ×4 (01:57→19:44)
[2019-11-26] MEDS: SUCRALFATE SUSP 100 MG/ML 10 ML UDC 1000 MG PO ×3 (05:57→18:06)
[2019-11-26] MEDS: PANTOPRAZOLE 40 MG TABLET PO (08:04)
[2019-11-26] MEDS: FAMOTIDINE 20 MG TABLET PO ×2 (08:04→22:06)
[2019-11-26 08:54] LABS: Basophils Percent Auto 0.2 % (0.2-1.2); Hematocrit 26.8 % (37.0-47.0); Hemoglobin 8.1 g/dL (12.0-15.0); Immature Granulocyte Absolute 0.02 K/mm3 (0.00-0.031); Immature Granulocyte Percent A 0.4 % (0-0.5); Lymphocytes Absolute Auto 1.04 K/mm3 (0.9-3.2); Lymphocytes Percent Auto 21.9 % (18.3-44.2); Mean Corpuscular HGB Conc 30.2 g/dl (32-36); Mean Corpuscular Hemoglobin 31.2 pg (26-34); Mean Corpuscular Volume 103.1 fl (80-100); Mean Platelet Volume 9.8 fl (7.4-10.4); Monocytes Absolute Auto 0.6 K/mm3 (0.1-0.6); Monocytes Percent Auto 12.2 % (2.6-8.5); Neutrophils Absolute Auto 3.1 K/mm3 (1.3-6.7); Neutrophils Percent Auto 65.3 % (45.5-73.1); Platelet Count Result 206 k/mm3 (150-375); Red Cell Distribution Width 14.4 % (11.5-14.5); White Blood Count 4.7 K/mm3 (4.5-10.0)
[2019-11-26 09:12] LABS: Anion Gap 6.7 mmol/L (7-16); Blood Urea Nitrogen 25 mg/dL (7-17); Calcium 9.5 mg/dL (8.4-10.2); Carbon Dioxide 39 mmol/L (22-30); Chloride 95 mmol/L (98-107); Estimated CRCL calculation 26 ml/min; Estimated Glomerular Filt Rate 49; Glucose 84 mg/dL (65-105); Potassium 3.7 mmol/L (3.4-5.0); Sodium 137 mmol/L (137-145)
--- NOTE | 2019-11-26 12:00 | WPDGIPROGNO ---
Progress Note: A&P Assessment and Plan (1) GERD with esophagitis: Code(s): K21.0 - Gastro-esophageal reflux disease with esophagitis Status: Acute Assessment and Plan: continue with protonix for now, no need to repeat endoscopy as she is eating and no vomiting will follow from afar, call us if questions (2) Community acquired bacterial pneumonia: Code(s): J15.9 - Unspecified bacterial pneumonia Status: Acute Assessment and Plan: she is on antibiotics and oxygen pulmonary on board (3) Chronic respiratory failure: Code(s): J96.10 - Chronic respiratory failure, unspecified whether with hypoxia or hypercapnia Status: Acute (4) Atypical chest pain: Code(s): R07.89 - Other chest pain Status: Acute Assessment and Plan: improved Subjective Date/time seen: 11/26/19 12:00 Interval history: she has been eating, similar reflux symptoms. Still with shortness of breath Review of Systems Review of Systems: All systems reviewed & are unremarkable except as noted in HPI and below Exam Const: General: comfortable Other: using oxygen HENMT: General nose exam: Normal nares present Eyes: General: appearance normal, both eyes and all related structures Neck: Neck: no JVD Resp: Auscultation: no wheezes and diminished lung sounds Cardio: Rate: regular rate GI: GI Palp: Yes Soft to palpation, No Firmness to palpation present (GI) and No Tenderness to palpation present (GI) Auscultation: normal bowel sounds Skin: General skin exam: normal color Neuro: Speech: normal speech Extrem: General: normal to inspection Psych: Mental Status: mental status grossly normal Objective Data Vital Signs Vital Signs: Vital Signs - 24 hr 11/25/19 14:00 11/25/19 14:33 11/25/19 14:41 Temperature 98.7 F Pulse Rate 91 76 80 Respiratory Rate 16 20 20 Blood Pressure 132/64 Pulse Oximetry 98 11/25/19 17:17 11/25/19 21:11 11/25/19 21:19 Temperature 98.3 F Pulse Rate 112 H 77 77 Respiratory Rate 24 H 22 H 22 H Blood Pressure 163/67 H Pulse Oximetry 96 97 11/25/19 22:00 11/26/19 01:50 11/26/19 06:00 Temperature 98.6 F 98.5 F Pulse Rate 109 H 79 87 Respiratory Rate 22 H 22 H 20 Blood Pressure 154/70 H 127/68 Pulse Oximetry 98 99 11/26/19 08:51 11/26/19 09:06 Temperature Pulse Rate 89 78 Respiratory Rate 20 20 Blood Pressure Pulse Oximetry 99 Intake/Output Intake/Output: Intake & Output 11/23/19 11/24/19 11/25/19 11/26/19 23:59 23:59 23:59 23:59 Intake Total 50 1310 1830 200 Output Total 700 900 525 Balance 50 610 930 -325 Meds/Results Medications: Active Medications Generic Name Dose Route Start Last Admin Trade Name Freq PRN Reason Stop Dose Admin Acetaminophen 650 mg 11/23/19 21:40 Tylenol Tablet PO Q4H PRN Mild Pain (1-3) or Fever Albuterol 2.5 mg 11/24/19 12:21 Albuterol Sulf Neb 2.5mg/0.5ml INHALATION Q4HRT PRN Shortness Of Breath Albuterol 2.5 mg 11/24/19 14:00 11/26/19 08:50 Albuterol Sulf Neb 2.5mg/0.5ml INHALATION 2.5 mg Q6HRT SOPHIE Administration Calcium Carbonate 200 mg 11/24/19 09:23 11/25/19 16:02 Tums PO 200 mg Q6H PRN Administration Indigestion Enoxaparin Sodium 40 mg 11/24/19 21:00 11/25/19 20:26 Lovenox SUB-Q 40 mg HS SOPHIE Administration Famotidine 20 mg 11/24/19 21:00 11/26/19 08:04 Pepcid PO 20 mg Q12HR SOPHIE Administration Ipratropium [place] 0.5 mg 11/24/19 14:00 11/26/19 08:50 Atrovent Neb INHALATION 0.5 mg Q6HRT SOPHIE Administration Levofloxacin 250 mg 11/26/19 12:00 Levaquin Tab PO DAILY@1200 [facility] Pantoprazole Sodium 40 mg 11/25/19 21:00 11/26/19 08:04 Protonix PO 40 mg Q12HR SOPHIE Administration Sucralfate 1,000 mg 11/25/19 16:30 11/26/19 05:57 Carafate PO 1,000 mg ACHS SOPHIE Administration Radiology Results: ITS Impressions Chest X-Ray 11/23/19 16
[2019-11-26 12:33] LABS: Percent Iron Saturation 31 % (20-50)
[2019-11-26 13:02] LABS: Transferrin 177 mg/dL (206-381)
--- NOTE | 2019-11-26 13:38 | ECG_ITS ---
Measurements Intervals Fellows Rate: 99 P: 82 SC: 141 QRS: 76 QRSD: 131 T: 60 QT: 354 QTc: 455 Interpretive Statements SINUS RHYTHM RIGHT BUNDLE BRANCH BLOCK MINIMAL Q WAVES- INF/LAT LEADS BASELINE ARTIFACT- V3-V4 ABNORMAL ECG Electronically Signed On 11-26-2019 14:03:15 CDT by Moises Prieto D.O.
--- NOTE | 2019-11-26 13:56 | PM.IMPN ---
Progress Note: A&P Assessment and Plan (1) Atypical chest pain: Code(s): R07.89 - Other chest pain Status: Acute Assessment and Plan: The patient presented with left sided chest pain. Troponin was negative x3 and EKG unchanged with sinus rhythm and incomplete right bundle branch block. Her pain was felt to be likely secondary to pneumonia and possibly related to her gastroesophageal reflux disease. She typically takes Cierra[place] for this pain. She is being managed conservatively with PPI as she is not a candidate for EGD given her respiratory status. Echocardiogram revealed normal systolic function with no increased LV thickness and normal diastolic function with no wall motion abnormalities. She reported chest pain again today, more on the right. She has a hx of presenting to the ED with chest pain and it was felt to be due to her pulmonary disease. CT chest with contrast revealed no central PE. She is being treated for pneumonia. The patient has risk factors for CAD so I will consult cardiology for further evaluation. STAT EKG was ordered with minimal Q waves in the inferior/lateral leads and troponin is pending. Appreciate cardiology input. (2) Community acquired bacterial pneumonia: Code(s): J15.9 - Unspecified bacterial pneumonia Status: Acute Assessment and Plan: She reported increased dyspnea, chest discomfort, cough, and sputum production. She also reports chills. CXR revealed new patchy infiltrate and atelectasis in the left lower lung. COVID-[address] was performed due to concern for right upper lobe mass and revealed left lower lobe volume loss which suggests atelectasis with possible superimposed acute infectious process. Her clinical picture is concerning for pneumonia. Blood cultures reveal no growth to date. Sputum cultures reveal growth of normal oropharyngeal roya. Urine legionella and pneumococcal antigens are pending. Continue bronchodilators. Continue home supplemental oxygen. Continue chest physiotherapy which is helping her to mobilize secretions and will add vest therapy. Appreciate pulmonology input. Ceftriaxone and azithromycin were discontinued and levaquin was initiated. Plan to treat for 5 additional days. She continues to produce phlegm which is becoming clearer in color. She reports decreasd cough frequency. Continue to monitor. (3) COPD, severe: Code(s): J44.9 - Chronic obstructive pulmonary disease, unspecified Status: Acute Assessment and Plan: Pulmonology was consulted and input is greatly appreciated. She is not felt to be in an acute COPD exacerbation. Prednisone was discontinued. Continue nebulized bronchodilators. Continue to encourage smoking cessation. Continue home supplemental oxygen. (4) GERD with esophagitis: Code(s): K21.0 - Gastro-esophageal reflux disease with esophagitis Status: Acute Assessment and Plan: She reports frequent heartburn sx. She uses [place] at home PRN. She is not on PPI therapy but I discussed omeprazole with the patient and her daughter at the bedside and they report no allergies to omeprazole. They report she stopped taking it because it was no longer covered by insurance. Continue protonix which was initiated yesterday. GI is on board and has recommended conservative treatment given her respiratory status with advanced emphysema. (5) Chronic respiratory failure: Code(s): J96.10 - Chronic respiratory failure, unspecified whether with hypoxia or hypercapnia Status: Acute Assessment and Plan: Secondary to COPD. She is on her baseline home oxygen requirement. (6) Elevated brain natriuretic peptide (BNP) level: Code(s): R79.89 - Other specified abnormal findings of blood chemistry Status: Acute Assessment and Plan: Echocardiogram was unremarkable with normal left ventricular systolic function, estimated at 65-70%, no in
[2019-11-26 14:00] LABS: Folic Acid 7.1 ng/mL (2.76->20)
[2019-11-26 14:27] LABS: Troponin I 0.028 ng/mL (0.000-0.034)
--- NOTE | 2019-11-26 14:51 | PM.PNPUL ---
Progress Note: A&P Assessment and Plan (1) Community acquired bacterial pneumonia: Code(s): J15.9 - Unspecified bacterial pneumonia Status: Acute Assessment and Plan: LLL consolidation vs atelectesis but could be CAP. Not sure if this was related to the left sided chest pain or not but warrants seven days of antibiotics - d/c prednisone - d/c ceftriaxone and azithromycin - Levaquin 500 mg PO OD for five more days starting today. - can be discharged home from pulmonary perspective - I spoke with Fina Andrews. (2) COPD, severe: Code(s): J44.9 - Chronic obstructive pulmonary disease, unspecified Status: Acute Assessment and Plan: - No signs of COPD exacerbation - continue home O2 3 liters at rest and 4 liters with exertion - resume home inhaler regimen on discharge - encourage smoking cessation; she seriously needs to quit, and we talked about it today. Subjective Date/time seen: 11/26/19 14:51 This 74 yo female is seen in follow up for COPD and community acquired pneumonia. She is feeling better today, was hoping to go home. She has intermittent pains in her right side of her chest. She says that chest pains have been intermittent on either side of her chest since her thoracic aneurysm repair ~ 2017. She is still smoking 1-2 cigarettes a day. She called her daughter Peace to pick her up later today. WBC is 4.7. normal range. Review of Systems Review of Systems: All systems reviewed & are unremarkable except as noted in HPI and below Exam Const: General: comfortable and no acute distress Eyes: General: appearance normal, both eyes and all related structures Neck: Neck: supple and no JVD Resp: Effort & Inspection: normal respiratory effort Auscultation: clear to auscultation bilaterally, crackles on the left and localized (base), no rales, no rhonchi, no wheezes (faint end expiratory wheezes) and diminished lung sounds Cardio: Rate: regular rate Rhythm: regular rhythm Heart sounds: no murmurs GI: Auscultation: normal bowel sounds Skin: General skin exam: normal color and no rashes or lesions noted Extrem: General: normal to inspection and no pedal edema Psych: Mental Status: mental status grossly normal Affect: normal affect Objective Data Vital Signs Vital Signs: Vital Signs - 24 hr 11/25/19 17:17 11/25/19 21:11 11/25/19 21:19 Temperature 36.8 C Pulse Rate 112 H 77 77 Respiratory Rate 24 H 22 H 22 H Blood Pressure 163/67 H Pulse Oximetry 96 97 11/25/19 22:00 11/26/19 01:50 11/26/19 06:00 Temperature 37.0 C 36.9 C Pulse Rate 109 H 79 87 Respiratory Rate 22 H 22 H 20 Blood Pressure 154/70 H 127/68 Pulse Oximetry 98 99 11/26/19 08:51 11/26/19 09:06 11/26/19 14:00 Temperature Pulse Rate 89 78 103 H Respiratory Rate 20 20 24 H Blood Pressure Pulse Oximetry 99 11/26/19 14:09 Temperature Pulse Rate 78 Respiratory Rate 24 H Blood Pressure Pulse Oximetry Intake/Output Intake/Output: Intake & Output 11/23/19 11/24/19 11/25/19 11/26/19 23:59 23:59 23:59 23:59 Intake Total 50 1310 1830 200 Output Total 700 900 525 Balance 50 610 930 -325 Meds/Results Medications: Active Medications Generic Name Dose Route Start Last Admin Trade Name Freq PRN Reason Stop Dose Admin Acetaminophen 650 mg 11/23/19 21:40 Tylenol Tablet PO Q4H PRN Mild Pain (1-3) or Fever Albuterol 2.5 mg 11/24/19 12:21 Albuterol Sulf Neb 2.5mg/0.5ml INHALATION Q4HRT PRN Shortness Of Breath Albuterol 2.5 mg 11/24/19 14:00 11/26/19 13:58 Albuterol Sulf Neb 2.5mg/0.5ml INHALATION 2.5 mg Q6HRT SOPHIE Administration Calcium Carbonate 200 mg 11/24/19 09:23 11/25/19 16:02 Tums PO 200 mg Q6H PRN Administration Indigestion Dornase Jason 2.5 mg 11/26/19 20:00 Pul
--- NOTE | 2019-11-26 16:26 | PM.CNCAR ---
Assessment and Plan Assessment and plan (1) Atypical chest pain: Code(s): R07.89 - Other chest pain Status: Acute Assessment and Plan: atypical noncardiac chest pain worse with coughing, movement constant with negative serial cardiac enzymes and without acute ischemic changes on EKG. Patient notes rubbing or holding her chest improves her symptoms on the right and she was more tender to exam with 2 fingers on the lateral mid chest on the left. I would recommend continued treatment and observe response with antibiotics, bronchodilator therapy. his symptoms become severe and unrelenting without clear explanation ischemic evaluation may be considered, however, I would not put her through the at Lexiscan stress test given her current status and very poor lung function. Invasive angiography is not warranted at this time. No further cardiac workup indicated this time. Thank you very much for this consultation. Please do not hesitate to contact us with any additional questions or concerns. (2) Chronic respiratory failure: Code(s): J96.10 - Chronic respiratory failure, unspecified whether with hypoxia or hypercapnia Status: Acute Assessment and Plan: Per primary service and pulmonology. (3) Pneumonia: Code(s): J18.9 - Pneumonia, unspecified organism Status: Acute Assessment and Plan: Antibiotics, bronchodilator therapy and oxygen supplementation per primary service. (4) COPD, severe: Code(s): J44.9 - Chronic obstructive pulmonary disease, unspecified Status: Acute Assessment and Plan: As above. (5) GERD with esophagitis: Code(s): K21.0 - Gastro-esophageal reflux disease with esophagitis Status: Acute Assessment and Plan: Per primary service. History of Present Illness History of Present Illness Consult date/time: Date of Service: 11/26/19 16:26 This is a cardiology consultation [facility]. Requesting physician: Fina Andrews PA-C Consult reason: chest pain Reason For Visit: pneumonia, copd Narrative: Patient is a pleasant 74-year-old female with a history of chronic hypoxic respiratory therapy on home O2 5L nasal canula, severe COPD, GERD who presented to the emergency department 11/23/2019 with complaints of worsening shortness of breath and left-sided chest pain. She states this began or Tuesday and has been constant ever since although was more severe prior to admission. This has lessened in severity but has never resolved. She describes the pain is an aching sensation in the shape of directing or oblong up and down her chest. She states it does not bother her currently but now has right-sided chest pain described as a soreness and also a burning sensation which began early this morning. This is better but has not resolved. She states she has had chest pain for many years associated with coughing and ever since she had arthroscopy aortic aneurysm repair at [place] more trouble with her breathing and intermittent chest pain. However, patient then states this pain only began on Tuesday later states is not new but is different than what she usually experiences. She is giving a variable description of the symptoms despite efforts to clarify her history with very direct questions. She does admit to her chest pain is worse with certain movements, deep breathing and especially with coughing. Gastroenterology and pulmonology has been consulted. COVID-19 testing was negative, serial troponins have been negative. She has a chronic right bundle branch block on EKG. Patient primarily complains of burning acid reflux. She is dyspneic with conversation but in no apparent distress particularly she is answering questions in a tangential manner providing unrelated information to the question presented requiring frequent redirection. She
[2019-11-26 17:30] LABS: Troponin I 0.025 ng/mL (0.000-0.034)
[2019-11-26] MEDS: SODIUM CHLORIDE 0.9% IV 1,000 ML 50 ML IV CONT (18:05)
[2019-11-26] MEDS: DORNASE ALFA INH SOLN 1 MG/ML 2.5 ML AMP 2.5 MG INHALATION (19:51)
[2019-11-26 21:44] LABS: Troponin I 0.034 ng/mL (0.000-0.034)
[2019-11-26] MEDS: ENOXAPARIN 40 MG/0.4 ML SYRINGE SUB-Q (22:05)
[2019-11-26] MEDS: guaiFENesin 12 HR 600 MG TABCR PO (22:06)
[2019-11-26] MEDS: CYANOCOBALAMIN INJ 1,000 MCG/ML VIAL 1000 MCG IM (22:07)
[2019-11-27] VITALS (9 sets, daily range): BP systolic 92–102; BP diastolic 55–57; PULSE 68–110; RESP 18–22; TEMP 36.6–36.9; O2SAT 97–100
[2019-11-27] MEDS: PANTOPRAZOLE 40 MG TABLET PO ×2 (02:35→08:57)
[2019-11-27] MEDS: SUCRALFATE SUSP 100 MG/ML 10 ML UDC 1000 MG PO ×3 (02:35→11:52)
[2019-11-27] MEDS: IPRATROPIUM BR 0.02% INH SOLN 0.5 MG/2.5 ML VIAL INHALATION ×3 (03:09→14:00)
[2019-11-27] MEDS: ALBUTEROL SULFATE NEB 2.5 MG/0.5 ML INH INHALATION ×3 (03:09→14:00)
[2019-11-27] MEDS: FAMOTIDINE 20 MG TABLET PO (08:57)
[2019-11-27] MEDS: guaiFENesin 12 HR 600 MG TABCR PO (08:57)
[2019-11-27] MEDS: ACETAMINOPHEN 325 MG TABLET 650 MG PO (08:59)
[2019-11-27 09:50] LABS: Hematocrit 28.8 % (37.0-47.0); Hemoglobin 8.9 g/dL (12.0-15.0); Mean Corpuscular HGB Conc 30.9 g/dl (32-36); Mean Corpuscular Hemoglobin 32.2 pg (26-34); Mean Corpuscular Volume 104.3 fl (80-100); Mean Platelet Volume 10.4 fl (7.4-10.4); Platelet Count Result 213 k/mm3 (150-375); Red Blood Count 2.76 M/mm3 (4.2-5.4); Red Cell Distribution Width 14.3 % (11.5-14.5); White Blood Count 5.2 K/mm3 (4.5-10.0)
[2019-11-27 10:12] LABS: Anion Gap 9.8 mmol/L (7-16); Blood Urea Nitrogen 26 mg/dL (7-17); Calcium 9.2 mg/dL (8.4-10.2); Carbon Dioxide 36 mmol/L (22-30); Chloride 96 mmol/L (98-107); Estimated CRCL calculation 29 ml/min; Estimated Glomerular Filt Rate 54; Glucose 118 mg/dL (65-105); Potassium 3.8 mmol/L (3.4-5.0); Sodium 138 mmol/L (137-145)
--- NOTE | 2019-11-27 13:45 | PCRCNOTE ---
0800 pulmozyme not given, window of admin time has passed. Please see next scheduled dose.
--- NOTE | 2019-11-27 16:36 | PM.DS ---
DS: Admitting Diagnosis Admitting Diagnosis Admitting Diagnosis: Pneumonia, unspecified organism DS: Discharge Diagnosis Discharge Diagnosis (1) Atypical chest pain: Code(s): R07.89 - Other chest pain Status: Acute Assessment and Plan: Discharge Summary Date of service 11/27/19: Mrs. Barnett is a 74 y.o. female with PMH significant for chronic hypoxic respiratory failure on 5 liters per nasal cannula, COPD, and gastroesophageal reflux disease who presented to the emergency department for the evaluation of left-sided chest pain and dyspnea. Additionally, she reported increased heartburn recently and dysphagia with solid foods. Initial labs on presentation to the ED revealed WBC 5,300 with a neutrophil predominance, hemoglobin 8.6, hematocrit 28.8, MCV 105.1, sodium 139, potassium 4.2, chloride 95, CO2 >40, BUN 15, Cr 0.9, glucose 114, lactic acid 1.1, calcium 9.3, troponin <0.012x2, and BNP 959. EKG demonstrated sinus rhythm, premature atrial complexes, incomplete right bundle branch block, and QTc 432. CXR demonstrated ill-defined opacity of the RUL with pulmonary mass not excluded, new patchy infiltrate and atelectasis in the left lower lung since imaging performed 09/27, and bilateral hyperinflation. She was tested for COIVD-19 and admitted to the hospitalist service for further evaluation and management. COVID-[address] with contrast was performed due to the suggestion of mass on CXR and revealed severe emphysema, hyperinflation, left lower lobe volume loss and atelectasis, and possible acute infectious process with no evidence of central pulmonary emboli, effusions, pneumothorax, or lypmhadenopathy. Troponin was negative x3 at presentation and EKG unchanged with sinus rhythm and incomplete right bundle branch block. Her pain was felt to be likely secondary to pneumonia and possibly related to her gastroesophageal reflux disease as she often described her pain as her typical GERD pain. She typically takes [place] for her GERD and was advised to stop this and take PPI. GI was consulted and recommended conservative management for her GERD with PPI as she is not a candidate for EGD given her respiratory status. Pulmonology was consulted and recommended treatment for her pneumonia with levaquin. Echocardiogram was performed due to complaints of chest discomfort and revealed normal systolic function with no increased LV thickness and normal diastolic function with no wall motion abnormalities. She complained of another episode of chest pain which she described as primarily right sided, similar to her prior symptoms of GERD. STAT EKG and troponins were ordered and cardiology was consulted. EKG revealed sinus rhythm, right bundle branch block, minimal Q waves, and no evidence of acute ischemia. Troponin was very minimally elevated at 0.028 with flat trendd to 0.034. Cardiology felt that her pain was atypical, noncardiac pain, and did not feel that any further workup with Lexiscan or invasive angiography was indicated. I discussed the patient's overall status including very poor lung function with advanced COPD with the patient and her daughter. They did not want to pursue any further cardiac or GI testing or interventions given her overall respiratory status. I also discussed palliative care/hospice with the patient's daughter and she was provided the [place] POLST form which they planned to discuss and fill out together. Her breathing improved and her pain resolved. She felt much better and requested to discharge home. Home health was set up and she will follow-up with Dr. De La Garza outpatient. She was discharged in stable condition on the afternoon of 11/27/19. (2) Community acquired bacterial pneumonia: Code(s): J15.9 - Unspecified bacterial pneumonia Status: Acute Assessment and Plan: She reported increased dyspnea, chest discomfort, cough, and sputum production. She also reports chills. CXR revealed new
[2019-11-28 17:45] LABS: Pneumococcal Antigen Urine Not Detected (Not Detected)
[2019-11-29 21:24] LABS: Legionella pneumophila Ag Ur Not Detected (Not Detected)
== END 2019-11-27 17:30 | disposition home or self-care (01) | DRG 194 ==
LOC: ANHED 21:48 → ANH3MEDSUR 23:57
PROVIDERS: Emergency Medicine; Admitting Provider Internal Medicine; Emergency Provider Emergency Medicine; PCP Family Medicine; Visit Provider Physician Assistant
DX: J15.9 Unspecified bacterial pneumonia (principal); J96.10 Chronic respiratory failure, unspecified whether with hypoxia or hypercapnia; Z99.81 Dependence on supplemental oxygen; Z20.828 Contact with and (suspected) exposure to other viral communicable diseases; J43.9 Emphysema, unspecified; R07.89 Other chest pain; K21.0 Gastro-esophageal reflux disease with esophagitis; R13.10 Dysphagia, unspecified; R79.89 Other specified abnormal findings of blood chemistry; E53.8 Deficiency of other specified B group vitamins; F17.210 Nicotine dependence, cigarettes, uncomplicated; I10 Essential (primary) hypertension; M81.0 Age-related osteoporosis without current pathological fracture; Z79.899 Other long term (current) drug therapy; Z86.718 Personal history of other venous thrombosis and embolism; Z98.49 Cataract extraction status, unspecified eye; Z96.1 Presence of intraocular lens
CPT/HCPCS: 36415; 71045; 71260; 80048; 80053; 82607; 82728; 82746; 83540; 83550; 83605; 83735; 83880; 84466; 84484; 85014; 85018; 85025; 85027; 85610; 85730; 87040; 87070; 87205; 87449; 87635; 87899; 92610; 93005; 93306; 94640; 94667; 94668; 94669; 96365; 96375; 97110; 97161; 97165; 97530; 99285; A9270; C9803; J0696; J1100; J1650; J3010; J3420; J7030; J7120; J7512; Q9967; U0003

== ENCOUNTER 2020-05-20 15:54 | Outpatient (CLI) | payer MEDICARE, SELFPAY ==
--- NOTE | ~2020-05-20 | CT_ITS ---
EXAMINATION: CT chest abdomen pelvis wo con EXAM DATE: 05/20/2020 16:34 INDICATION: Abnormal weight loss. TECHNIQUE: Spiral CT of the chest, abdomen and pelvis was performed without contrast. Axial, valdovinos l and sagittal images were reviewed. Coronal maximum intensity pixel images of chest reviewed. The dose-length product (DLP) for this examination was 235.18 mGy-cm. The exposure was tailored accordin g to patient size (auto mA exposure control), and iterative reconstruction (ASIR) was used as additio nal dose reduction technique. Comparison is made to prior examination from 11/24/2019. FINDINGS: CHEST: There is biapical scarring unchanged. There is severe emphysema and hyperinflation. There has been increase in left lower lobe consolidation, with some volume loss but also heterogeneous density suggests superimposed infection or possibly cancer. There is bronchiectasis. There are no pleural o r pericardial effusions. Tracheobronchial tree is patent. There is no mediastinal, hilar or axill cirilo lymphadenopathy. There is no pneumothorax. Narrow cardiac silhouette from the hyperinflated l ungs. There is moderate coronary arterial calcification, arterial sclerosis. ABDOMEN PELVIS: There are splenic and liver granulomata. Adrenal glands and pancreas are unremarkable . Gallbladder is unremarkable. No biliary obstruction. There is no nephrolithiasis or hydronephros is. There is a 6 cm right renal cyst. The uterus is unremarkable. The bladder is unremarkable. Th ere is no retroperitoneal or pelvic lymphadenopathy. There is moderate to severe scattered arterios clerotic disease. The appendix is not positively visualized. There is no pericecal inflammatory change to suggest appe ndicitis. There is moderate scattered colonic diverticulosis. There is no adjacent inflammatory gongora ge to suggest diverticulitis. The stomach and small bowel are unremarkable. There is expected amount of colonic stool. No free intraperitoneal gas. There are no osteoblastic or osteolytic lesions i dentified. IMPRESSION: 1. Multi segmental left lower lobe consolidation, partly atelectasis but heterogeneous density indic ates superimposed infection, or possibly cancer (Prior study had atelectasis without consolidation). 2. Severe emphysema and hyperinflation. 3. Chronic findings. Reviewed, dictated and finalized at location A. [facility] IMPRESSION: 1. Multi segmental left lower lobe consolidation, partly atelectasis but heter ogeneous density indicates superimposed infection, or possibly cancer (Prior st udy had atelectasis without consolidation). 2. Severe emphysema and hyperinflation. 3. Chronic findings.
[2020-05-20 17:44] LABS: Iron 38 ug/dL (37-170)
[2020-05-20 17:53] LABS: Percent Iron Saturation 20 % (20-50)
== END 2020-05-20 15:55 | disposition home or self-care (01) ==
PROVIDERS: PCP Family Medicine; Visit Provider Family Medicine
DX: R63.4 Abnormal weight loss (principal); D64.9 Anemia, unspecified; J43.9 Emphysema, unspecified
CPT/HCPCS: 36415; 71250; 74176; 82728; 83540; 83550

== ENCOUNTER 2020-09-20 06:51 | Emergency (ER) | payer MEDICARE, SELFPAY ==
[2020-09-20] VITALS (7 sets, daily range): BP systolic 107–118; BP diastolic 57–83; PULSE 81–107; RESP 19–26; TEMP 37.1; O2SAT 97–100
--- NOTE | ~2020-09-20 | CT_ITS ---
EXAMINATION: CTA chest PE protocol DATE: 09/20/2020 10:33 INDICATION: Pulmonary embolism TECHNIQUE: Computed tomography (CT) pulmonary angiogram of the chest was performed with 100 mL Omnipa que-350 intravenous contrast. Additional 3D reconstructions utilizing coronal maximum intensity proje ction (MIP) were performed. Automated exposure control and iterative reconstruction technique were em ployed. The dose-length product was 249.52 mGy-cm. COMPARISON: CT dated 05/20/2020 and 09/23/2019 FINDINGS: Excellent contrast opacification of the pulmonary arteries. There is mild streak artifact from dense contrast in the superior vena cava and right atrium. Mild scattered respiratory motion artifact. Over all this does not significantly limit evaluation. There is abrupt cut off of the pulmonary artery to the superior segment of the left upper lobe but without evident central filling defect to suggest pul monary embolism. No other pulmonary arterial filling defects appreciated. Severe emphysema. Several s cattered calcified pulmonary nodules in the left lung with calcified left hilar and mediastinal lymph nodes, several calcified hepatic nodules and numerous calcified splenic nodules, all consistent with old granulomatous disease. Stable appearance of chronic atelectasis/scarring at the bilateral apices . Approximately 1-1.3 cm residual nodular region of likely atelectasis/scarring in the posterior segm ent of the right upper lobe which is decreased in size since 11/24/2019. There is bronchiectasis and c avitation of the partially collapsed left lower lobe. Small left pleural effusion. Heart size is norm al. Atherosclerotic coronary artery calcification. No pericardial effusion. Thoracic aorta is normal in caliber with no dissection. There is enlargement of the central pulmonary arteries consistent with pulmonary arterial hypertension. 2.0 cm left renal cyst. 2 mm nonobstructing stone in an upper pole calyx of the left kidney. Mild thoracic kyphosis with mild anterior wedging of a couple mid thoracic vertebral bodies. Moderate spondylosis. IMPRESSION: 1. No pulmonary embolism. 2. Likely persistent pneumonia in the partially collapsed and consolidated left lower lobe with small left pleural effusion 3. Severe emphysema. 4. Enlargement of the central pulmonary arteries consistent with pulmonary arterial hypertension. 5. 2 mm nonobstructing left renal stone. Reviewed, dictated and finalized at location A. IMPRESSION: 1. No pulmonary embolism. 2. Likely persistent pneumonia in the partially collapsed and consolidated left lower lobe with small left pleural effusion 3. Severe emphysema. 4. Enlargement of the central pulmonary arteries consistent with pulmonary daren rial hypertension. 5. 2 mm nonobstructing left renal stone.
--- NOTE | ~2020-09-20 | XR_ITS ---
EXAMINATION: XR chest 2V DATE: 09/20/2020 07:36 INDICATION: Acute onset shortness of breath and chest pain TECHNIQUE: frontal and lateral views of the chest were obtained. COMPARISON: Chest radiograph dated 11/23/[address] dated 05/12/2020 FINDINGS: Severe emphysema with hyperexpanded, hyperlucent lungs with architectural distortion. Chronic pleural parenchymal scarring at the apices, right greater than left. Chronic volume loss and airspace opacit ies in the left lower lobe. A few large calcified nodules in the left mid and lower lung zone and mul tiple splenic calcifications, all consistent with old granulomatous disease. No pneumothorax or defin itive pleural effusion. Heart size is normal. Enlargement of the central pulmonary arteries consisten t with pulmonary arterial hypertension. Moderate thoracic spondylosis. IMPRESSION: 1. Emphysema with chronic opacities and volume loss in the left lower lobe to at least in part to ate lectasis/scarring although could not exclude superimposed pneumonia or malignancy. 2. Severe emphysema. 3. Enlargement of the central pulmonary arteries consistent with pulmonary arterial hypertension. Reviewed, dictated and finalized at location A. IMPRESSION: 1. Emphysema with chronic opacities and volume loss in the left lower lobe to a t least in part to atelectasis/scarring although could not exclude superimposed pneumonia or malignancy. 2. Severe emphysema. 3. Enlargement of the central pulmonary arteries consistent with pulmonary daren rial hypertension.
--- NOTE | 2020-09-20 06:53 | ECG_ITS ---
Measurements Intervals [place] Rate: 114 P: 81 DE: 105 QRS: 38 QRSD: 126 T: 92 QT: 328 QTc: 452 Interpretive Statements SINUS TACHYCARDIA WITH SHORT DE INTERVAL INTRAVENTRICULAR CONDUCTION DELAY DELAYED PRECORDIAL R/S TRANSITION INFERIOR INFARCT, AGE INDETERMINATE BORDERLINE ST-T WAVE ABNORMALITY- HIGH LATERAL LEADS BASELINE ARTIFACT- I, III, AVL, AVF ABNORMAL ECG Electronically Signed On 09-20-2020 7:00:53 CDT by Moises Prieto D.O.
--- NOTE | 2020-09-20 07:04 | PHAR ---
TALKED TO ISELA ABOUT IBUPROFEN ALLERGY W/ASA ORDER. WILL TALK TO PATIENT ABOUT ANY PRIOR ASA USE BEFORE ADMINISTRATION.
[2020-09-20 07:29] LABS: Basophils Percent Auto 0.5 % (0.2-1.2); Eosinophils Percent Auto 0.3 % (0-4.4); Hematocrit 30.8 % (37.0-47.0); Immature Granulocyte Absolute 0.05 K/mm3 (0.00-0.031); Immature Granulocyte Percent A 0.8 % (0-0.5); Lymphocytes Absolute Auto 0.52 K/mm3 (0.9-3.2); Lymphocytes Percent Auto 8.6 % (18.3-44.2); Mean Corpuscular HGB Conc 29.2 g/dl (32-36); Mean Corpuscular Hemoglobin 31.5 pg (26-34); Mean Corpuscular Volume 107.7 fl (80-100); Mean Platelet Volume 9.7 fl (7.4-10.4); Monocytes Absolute Auto 0.4 K/mm3 (0.1-0.6); Monocytes Percent Auto 6.9 % (2.6-8.5); Neutrophils Percent Auto 82.9 % (45.5-73.1); Platelet Count Result 244 k/mm3 (150-375); Red Blood Count 2.86 M/mm3 (4.2-5.4); Red Cell Distribution Width 12.5 % (11.5-14.5); White Blood Count 6.1 K/mm3 (4.5-10.0)
[2020-09-20 07:35] LABS: INR 0.9; Prothrombin Time 12.5 Seconds (11.1-14.7)
[2020-09-20 07:36] LABS: Partial Thromboplastin Time 29.8 SECONDS (22.3-36.8)
[2020-09-20 07:43] LABS: Blood Urea Nitrogen 18 mg/dL (7-17); Calcium 10.4 mg/dL (8.4-10.2); Carbon Dioxide > 40 mmol/L (22-30); Chloride 96 mmol/L (98-107); Estimated CRCL calculation 25 ml/min; Estimated Glomerular Filt Rate 54; Glucose 139 mg/dL (65-105); Potassium 4.2 mmol/L (3.4-5.0); Sodium 144 mmol/L (137-145)
[2020-09-20 07:46] LABS: Hypochromasia 1+ (NORMAL); Ovalocytes 1+ (NORMAL); Platelet Estimate Adequate (Adequate); Poikilocytosis 1+ (NORMAL)
[2020-09-20 07:48] LABS: Troponin I < 0.012 ng/mL (0.000-0.034)
--- NOTE | 2020-09-20 08:41 | ED.CHESTPAIN ---
HPI - Chest Pain General Chief Complaint: Chest Pain Stated Complaint: left chest wall pain Time Seen by Provider: 09/20/20 08:39 Source: patient, EMS and RN notes reviewed History of Present Illness HPI narrative: Patient is 75 years old white female came to the emergency room by ambulance because of left chest pain, sharp pain, worse when she breathes deep, better if she lays still. Patient denies radiation of pain or increase shortness of breath. History of COPD on 5 L oxygen by nasal cannula Patient is a smoker, does not drink, full code Related Data Home Medications Medication Instructions Recorded Confirmed albuterol sulfate [ProAir HFA] 2 puff INHALATION QID 09/28/19 11/23/19 acetaminophen [Tylenol] 650 mg PO Q4H PRN 11/23/19 11/23/19 ipratropium-albuterol 3 ml INHALATION Q4H PRN 11/23/19 11/23/19 omeprazole 09/20/20 Allergies Allergy/AdvReac Type Severity Reaction Status Date / Time codeine Allergy Unknown Hives / Verified 09/20/20 08:13 [place] ibuprofen Allergy Unknown Hives / Verified 09/20/20 08:13 [place] NSAIDS (Non-Steroidal Allergy Unknown [place] Verified 09/20/20 08:13 Anti-Inflamma orphenadrine Allergy Unknown Unknown Verified 09/20/20 08:13 propacetamol Allergy Unknown Hives / Verified 09/20/20 08:13 [place] Review of Systems Review of Systems: Narrative: CONSTITUTIONAL: Denies fever, chills, or sweats. EYES: Denies visual changes, redness, or discharge. ENT: Denies rhinorrhea, congestion, sore throat, or otalgia. CARDIOVASCULAR: Denies chest pain, palpitations, or edema. RESPIRATORY: Denies cough or dyspnea. GASTROINTESTINAL: Denies abdominal pain, nausea, vomiting, or diarrhea. GENITOURINARY: Denies dysuria or hematuria. SKIN: Denies rash or itching. MUSCULOSKELETAL: Denies back pain, joint pain, or myalgia. NEUROLOGIC: Denies headache, numbness, or weakness. PSYCHIATRIC: Denies anxiety or depression. [facility] Past Medical History Medical History (Updated 09/20/20 @ 11:23 by Sunny Leger MD) Chronic respiratory failure COPD (chronic obstructive pulmonary disease) GERD with esophagitis Hemorrhoids History of DVT (deep vein thrombosis) Osteoporosis Surgical History Surgical History H/O breast biopsy H/O inguinal hernia repair History of cataract removal with insertion of prosthetic lens History of tonsillectomy History of tubal ligation Family History Family History Father Cerebrovascular accident, Onset Age: 52 Patient's father is Mother Patient's mother is Coronary artery disease Social History Social History Social History: Mrs. Barnett resides at home alone. She is . Her 2 years ago. Her neighbors and daughter, Peace Jovel, assist her and check on her daily. 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 She smokes 1 pack of cigarettes per week. She wishes to be a full code. She has designated her daughter Peace Jovel as her surrogate decision maker. She denies alcohol or other substance use. Smoking packs per day: 1 Smoking cigarettes per day: 20.0 Years smoked: 50 Smoking pack-years: 50.00 Smoking status: Current every day smoker Second hand tobacco smoke exposure: Yes Alcohol intake: never Substance use: never Gender identity (if verbalized by the patient): Female Spiritual care concerns: No Exam Narrative: Exam Narrative: General appearance: Well-developed, well-nourished Skin: Normal color Head: Normocephalic, nontraumatic Eyes: Clear conjunctiva ENT: Oropharynx normal, ears normal, nose normal Neck: Supple, nontender Chest and respiratory: Airway patent, no respiratory distress, no accessory muscle use. Diffuse tenderness of the chest mainly on the left side, no bruises or rash Heart: Regular rate/rhythm A
[2020-09-20 08:52] LABS: D Dimer 1.28 ug/mL (<0.48)
[2020-09-20 10:43] LABS: Troponin I 0.012 ng/mL (0.000-0.034)
== END 2020-09-20 11:53 | disposition home or self-care (01) ==
PROVIDERS: Emergency Medicine; Emergency Provider Emergency Medicine; PCP Family Medicine
DX: R07.89 Other chest pain (principal); J43.9 Emphysema, unspecified; Z99.81 Dependence on supplemental oxygen; J96.10 Chronic respiratory failure, unspecified whether with hypoxia or hypercapnia; K21.00 Gastro-esophageal reflux disease with esophagitis, without bleeding; Z86.718 Personal history of other venous thrombosis and embolism; M81.0 Age-related osteoporosis without current pathological fracture; Z98.49 Cataract extraction status, unspecified eye; Z96.1 Presence of intraocular lens; F17.210 Nicotine dependence, cigarettes, uncomplicated; R00.0 Tachycardia, unspecified; I45.9 Conduction disorder, unspecified; R94.31 Abnormal electrocardiogram [ECG] [EKG]; R91.8 Other nonspecific abnormal finding of lung field; N20.0 Calculus of kidney
CPT/HCPCS: 36415; 71046; 71275; 80048; 84484; 85025; 85380; 85610; 85730; 93005; 99284; Q9967

== ENCOUNTER 2020-09-26 14:55 | Inpatient (IN) | payer MEDICARE, SELFPAY ==
[2020-09-26] VITALS (21 sets, daily range): BP systolic 94–136; BP diastolic 48–70; PULSE 75–110; RESP 20–36; TEMP 36.4–36.9; O2SAT 87–99; BMI 15.5
--- NOTE | ~2020-09-26 | XR_ITS ---
XR chest 1V portable 09/26/2020 16:00 Indication: Shortness of breath. Left-sided chest pain. Procedure: AP portable chest Comparison: Comparison to multiple prior studies sequentially, with oldest reviewed study dated 09/22. Findings: Heart size normal. There is airspace disease of the left mid and lower lung. Small left ple ural effusion. There is left thoracic volume loss with mediastinal shift to the left. There are large densely calcified granulomas of the left lung. There are emphysematous changes. Impression: 1: Progression of airspace disease left mid and lower lung, suspicious for pneumonia. There is left-s ided thoracic volume loss with mediastinal shift to the left, consistent with a combination of atelec tasis. 2: Small left pleural effusion. 3: Emphysema. Reviewed, dictated and finalized at location A. Impression: 1: Progression of airspace disease left mid and lower lung, suspicious for pneu monia. There is left-sided thoracic volume loss with mediastinal shift to the l eft, consistent with a combination of atelectasis. 2: Small left pleural effusion. 3: Emphysema.
--- NOTE | ~2020-09-26 | XR_ITS ---
EXAMINATION: XR chest 1V portable DATE: 09/30/2020 09:59 INDICATION: Chest pain. TECHNIQUE: A single frontal view of the chest was obtained. COMPARISON: Chest single view 09/29/2020, chest CT 09/20/2020 FINDINGS: The lungs are hyperexpanded with lucencies, consistent with emphysema. There are airspace o pacities in left lower lobe, consistent with pneumonia. Calcified left lung nodules and calcified lef t hilar lymph nodes are consistent with old granulomatous disease. There is a small left pleural effu jacek. No pneumothorax. The heart size is normal. IMPRESSION: 1. Persistent airspace opacities in left lower lobe, consistent with pneumonia. 2. Stable small left pleural effusion. 3. Severe emphysema. Reviewed, dictated and finalized at location A.
--- NOTE | ~2020-09-26 | XR_ITS ---
XR abdomen/kub 1V 09/28/2020 14:38 Indication: Abdominal pain. Procedure: KUB Comparison: No prior studies for comparison. Findings: Bowel gas pattern is nonobstructive. Moderate colonic fecal loading. There are calcified gr anulomas of the liver and spleen. Bowel contents and overlying calcified granulomas limited evaluatio n for renal stones. Moderate lumbar spondylosis. Small pleural effusions. Impression: 1: No acute abdominal abnormality. Reviewed, dictated and finalized at location A. Impression: 1: No acute abdominal abnormality.
--- NOTE | ~2020-09-26 | XR_ITS ---
EXAMINATION: XR chest 1V portable DATE: 09/29/2020 05:19 INDICATION: Pneumonia. TECHNIQUE: A single frontal view of the chest was obtained on 2 radiographs. COMPARISON: Chest single view 09/18/2020, chest CT 09/20/2020 FINDINGS: The lungs are hyperexpanded with interstitial opacities and architectural distortion, consi stent with emphysema. There is chronic scarring in the upper lobes. Calcified left lung nodules and c alcified left hilar and mediastinal lymph nodes are consistent with old granulomatous disease. There are airspace opacities at left lung base. There is a small left pleural effusion. No pneumothorax. Th e heart size is normal. IMPRESSION: 1. Persistent airspace opacities at left lung base, consistent with pneumonia. 2. Small left pleural effusion. 3. Severe emphysema. Reviewed, dictated and finalized at location A.
--- NOTE | 2020-09-26 15:51 | ECG_ITS ---
Measurements Intervals [place] Rate: 93 P: 78 DE: 131 QRS: 49 QRSD: 125 T: 44 QT: 351 QTc: 438 Interpretive Statements SINUS RHYTHM RIGHT BUNDLE BRANCH BLOCK BASELINE ARTIFACT- I, II, III, AVR, AVL, AVF, V1-V6 ABNORMAL ECG Electronically Signed On 09-26-2020 16:08:28 CDT by Moises Prieto D.O.
--- NOTE | 2020-09-26 15:52 | ED.GENADULT ---
HPI - General Adult General Chief complaint: Shortness of Breath/Dyspnea Stated complaint: CP/SOB Time Seen by Provider: 09/26/20 15:06 Source: patient, family, EMS and RN notes reviewed Mode of arrival: EMS Limitations: no limitations and clinical condition History of Present Illness HPI narrative: Patient is 75 years old white female brought to the emergency room by her daughter who is telling me that the patient been getting weaker gradually over the last 7 days since she been seen in the emergency room 1 week ago. Also been having intermittent left chest pain at rest. Patient lives alone, is telling me that her left chest pain is getting better but today feeling so weak could not get up to open the door for the neighbor or he been using her walker. History of COPD, currently smoking, Patient on 5 L oxygen by nasal cannula all the time, Patient is not sure if she had Covid vaccine or not. Related Data Home Medications Medication Instructions Recorded Confirmed albuterol sulfate [ProAir HFA] 2 puff INHALATION QID 09/28/19 11/23/19 acetaminophen [Tylenol] 650 mg PO Q4H PRN 11/23/19 11/23/19 ipratropium-albuterol 3 ml INHALATION Q4H PRN 11/23/19 11/23/19 omeprazole 09/20/20 Allergies Allergy/AdvReac Type Severity Reaction Status Date / Time codeine Allergy Unknown Hives / Verified 09/20/20 08:13 Red Face ibuprofen Allergy Unknown Hives / Verified 09/20/20 08:13 Red Face NSAIDS (Non-Steroidal Allergy Unknown Flushing Verified 09/20/20 08:13 Anti-Inflamma orphenadrine Allergy Unknown Unknown Verified 09/20/20 08:13 propacetamol Allergy Unknown Hives / Verified 09/20/20 08:13 Red Face Review of Systems Review of Systems: Narrative: CONSTITUTIONAL: Denies fever, chills, or sweats., Generalized weakness EYES: Denies visual changes, redness, or discharge. ENT: Denies rhinorrhea, congestion, sore throat, or otalgia. CARDIOVASCULAR: Chest pain RESPIRATORY: Dyspnea GASTROINTESTINAL: Denies abdominal pain, nausea, vomiting, or diarrhea. GENITOURINARY: Denies dysuria or hematuria. SKIN: Denies rash or itching. MUSCULOSKELETAL: Denies back pain, joint pain, or myalgia. NEUROLOGIC: Denies headache, numbness, or weakness. PSYCHIATRIC: Denies anxiety or depression. [facility] Past Medical History Medical History (Updated 09/26/20 @ 18:01 by Sunny Leger MD) Chronic respiratory failure COPD (chronic obstructive pulmonary disease) GERD with esophagitis Hemorrhoids History of DVT (deep vein thrombosis) Osteoporosis Surgical History Surgical History H/O breast biopsy H/O inguinal hernia repair History of cataract removal with insertion of prosthetic lens History of tonsillectomy History of tubal ligation Family History Family History Father Cerebrovascular accident, Onset Age: 52 Patient's father is Mother Patient's mother is Coronary artery disease Social History Social History Social History: Mrs. Barnett resides at home alone. She is . Her 2 years ago. Her neighbors and daughter, Peace Jovel, assist her and check on her daily. 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 She smokes 1 pack of cigarettes per week. She wishes to be a full code. She has designated her daughter Peace Jovel as her surrogate decision maker. She denies alcohol or other substance use. Smoking packs per day: 1 Smoking cigarettes per day: 20.0 Years smoked: 50 Smoking pack-years: 50.00 Smoking status: Current every day smoker Second hand tobacco smoke exposure: Yes Alcohol intake: never Substance use: never Gender identity (if verbalized by the patient): Female Spiritual care concerns: No Exam Narrative: Exam Narrative: General appearance: Well-developed, malnourished Skin: Normal colo
[2020-09-26 16:23] LABS: Alveolar/Arterial O2 Gradient 152.8 mmHg; Fractional Inspired Oxygen 40 %; HCO3 ABG 39.5 mEq/l (22.0-26.0); Oxygen Content ABG 12.3 %vol (16.0-22.0); Oxygen Saturation ABG 90.6 % (95.0-100.0); Oxyhemoglobin 91.8 % THb (90.0-100.0); PO2 ABG 60.2 mmHg (80.0-100.0); Total Hemoglobin 9.5 g/dL (12.0-18.0); pH ABG 7.416 (7.350-7.450)
[2020-09-26 16:25] LABS: Device NASAL CANNULA; PCO2 ABG 62.8 mmHg (35.0-45.0); Site Drawn LEFT BRACHIAL
[2020-09-26 16:51] LABS: Hematocrit 28.4 % (37.0-47.0); Hemoglobin 8.5 g/dL (12.0-15.0); Mean Corpuscular HGB Conc 29.9 g/dl (32-36); Mean Corpuscular Volume 103.6 fl (80-100); Mean Platelet Volume 9.7 fl (7.4-10.4); Platelet Count Result 283 k/mm3 (150-375); Red Blood Count 2.74 M/mm3 (4.2-5.4); Red Cell Distribution Width 12.2 % (11.5-14.5); White Blood Count 6.4 K/mm3 (4.5-10.0)
[2020-09-26 17:01] LABS: INR 0.9; Prothrombin Time 12.5 Seconds (11.1-14.7)
[2020-09-26 17:02] LABS: Partial Thromboplastin Time 28.6 SECONDS (22.3-36.8)
[2020-09-26 17:17] LABS: Band Neutrophils Percent 3 % (0-6); Lymphocytes Absolute Manual 0.25 K/mm3 (1.1-4.5); Neutrophils Absolute Manual 6.14 K/mm3 (1.7-7.2); Neutrophils Percent Manual 93 % (46-73); Platelet Estimate Adequate (Adequate); Total Cells Counted 100
[2020-09-26 17:18] LABS: Hypochromasia 1+ (NORMAL)
[2020-09-26 17:24] LABS: Alanine Aminotransferase 7 U/L (4-35); Albumin Level 3.8 g/dL (3.5-5.1); Alkaline Phosphatase 91 U/L (38-126); Aspartate Amino Transferase 23 U/L (14-36); Bilirubin,Total 0.4 mg/dL (0.2-1.3); Blood Urea Nitrogen 22 mg/dL (7-17); Calcium 10.1 mg/dL (8.4-10.2); Carbon Dioxide > 40 mmol/L (22-30); Chloride 93 mmol/L (98-107); Estimated CRCL calculation 23 ml/min; Estimated Glomerular Filt Rate 49; Glucose 124 mg/dL (65-105); Magnesium 2.4 mg/dL (1.6-2.3); Potassium 4.7 mmol/L (3.4-5.0); Sodium 142 mmol/L (137-145)
[2020-09-26 17:37] LABS: NT Pro B Type Natriuretic Pept 785 pg/mL (5-100); Troponin I < 0.012 ng/mL (0.000-0.034)
[2020-09-26] MEDS: methylPREDNISolone SOD SUCC 125 MG VIAL 62.5 MG IV PUSH (18:02)
[2020-09-26] MEDS: IPRATROPIUM BR 0.02% INH SOLN 0.5 MG/2.5 ML VIAL INHALATION (18:18)
[2020-09-26] MEDS: ALBUTEROL SULFATE NEB 2.5 MG/0.5 ML INH 5 MG INHALATION (18:18)
[2020-09-26 18:23] LABS: Add Urine Microscopic? YES; Appearance Urine Cloudy (Clear); Bacteria Urine Trace /hpf; Bilirubin Urine Negative (Negative); Blood Urine 2+ (Negative); Color Urine Yellow (Yellow); Glucose Urine UA Negative (Negative); Ketones Urine 1+ mg/dL (Negative); Leukocyte Esterase Ur Trace LEU/UL (Negative); Mucus Urine Rare /lpf; Nitrate Urine Negative (Negative); Protein Urine 1+ mg/dL (Negative); Specific Grav Ur 1.018 (1.001-1.035); Squamous Epithelial Cell Urine Many /hpf (Few); Urobilinogen Urine Negative mg/dL (<2.0); WBC Urine 0-3 /hpf
--- NOTE | 2020-09-26 22:13 | PM.IMHP ---
H&P: HPI History of Present Illness Date/Time: 09/26/20 23:00 Chief Complaint: Shortness of breath Narrative: 75-year-old female with a past medical history of COPD and chronic hypercapnic hypoxic respiratory failure chronic home O2 of 5 L who presented to the ER via EMS due to left-sided chest pain and shortness of breath. The patient had been evaluated in the ER 7 days ago due to similar symptoms and was diagnosed with atypical chest pain. However over the last 7 days the patient has become progressively weaker. She has been unable to ambulate with her walker. She has had a worsening cough that is productive of yellow to greenish sputum. She always produces some sputum but the color of her sputum has changed. She has been having some chills but no measured fevers. She denies any recent ill contacts. She reports moderate left-sided chest pain that is worse with cough and deep breathing. Pain is reproducible with palpation as well. Her chest pain has been getting better over the course of the week. Patient is noted to have a small body habitus and her BMI is consistent with protein calorie malnutrition. She reports that her weight has been stable and that she has a good appetite. She has not had any increased oxygen requirement. She reports that she has used her nebulizer treatments at home they give her mild improvement in her symptoms. She denies any loss of sense of taste or smell. She thinks that she may have received COVID vaccine however review of the patient's immunization record does not support this. Review of Systems Review of Systems: Narrative: 12 systems were reviewed with pertinent positives and negatives per HPI. Except as documented in the HPI, all other systems were reviewed and are negative. [facility] Past Medical History Medical History (Updated 09/27/20 @ 02:42 by Olga Crowley DO) B12 deficiency Chronic anemia Chronic respiratory failure with hypoxia and hypercapnia COPD (chronic obstructive pulmonary disease) GERD with esophagitis Hemorrhoids History of DVT (deep vein thrombosis) Osteoporosis Surgical History Surgical History H/O breast biopsy H/O inguinal hernia repair History of cataract removal with insertion of prosthetic lens History of tonsillectomy History of tubal ligation Family History Family History (Updated 09/26/20 @ 22:14 by Olga Crowley DO) Father Cerebrovascular accident, Onset Age: 52 Mother Coronary artery disease Social History Social History (Updated 09/27/20 @ 02:47 by Olga Crowley DO) Social History: Mrs. Barnett resides at home alone. She is . Her in 2018. She has 2 daughters 1 of which will lives locally. Her neighbors and her daughter check on her daily. 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 She has smoked as much as 1 pack of cigarettes per day. She started smoking at the age of 19. She is currently smoking about 3 cigarettes a day. She has designated her daughter She denies alcohol or other substance use. Primary care physician: Dr. Faye Cadet Code status: Full code Surrogate decision maker: Peace Jovel (daughter) Smoking packs per day: 1 Smoking cigarettes per day: 20.0 Years smoked: 56 Smoking pack-years: 56.00 Smoking status: Current every day smoker Tobacco type: cigarettes Second hand tobacco smoke exposure: Yes Alcohol intake: former Substance use: never Gender identity (if verbalized by the patient): Female Spiritual care concerns: No Meds Home Medications and Allergies Home Medications Medication Instructions Recorded Confirmed Type albuterol sulfate [ProAir HFA] 2 puff INHALATION QID 09/28/19 11/23/19 History ipratropium-albuterol 3 ml INHALATION Q4H PRN 11/23/19 11/23/19 History levofloxacin 250 mg PO DAILY@1200 3 Days #3 11/27/19 Rx tablet pantoprazole 40 mg PO Q12HR 30 Days #60 ta
--- NOTE | 2020-09-26 22:53 | ADMGEN ---
This patient, Violet Barnett, was admitted to [facility] Surg Room 329-01. Patient/family oriented to hospital policies and general routines including ID bracelet, bed and alarms, visiting hours, pain management, procedures, bathroom and other care routines, personal items, smoking policy, room service/diet, and visiting hours. Information on how to activate the Rapid Response Team has been discussed. Patient/Family are encouraged to report perceived risks to care and to ask questions if they do not understand what they are told or what they should do.
--- NOTE | 2020-09-26 22:57 | ADMGEN ---
This patient, Violet Barnett, was admitted to [facility] Surg Room 329-01. Patient/family oriented to hospital policies and general routines including ID bracelet, bed and alarms, visiting hours, pain management, procedures, bathroom and other care routines, personal items, smoking policy, room service/diet, and visiting hours. Information on how to activate the Rapid Response Team has been discussed. Patient/Family are encouraged to report perceived risks to care and to ask questions if they do not understand what they are told or what they should do.
[2020-09-26] MEDS: SODIUM CHLORIDE 0.9% IV 1,000 ML 125 ML IV CONT (23:08)
[2020-09-26] MEDS: methylPREDNISolone SOD SUCC 125 MG VIAL 60 MG IV PUSH (23:35)
[2020-09-27] VITALS (19 sets, daily range): BP systolic 104–120; BP diastolic 43–67; PULSE 70–100; RESP 18–22; TEMP 36.5–37; O2SAT 95–100; BMI 15.5
[2020-09-27] MEDS: IPRATROPIUM BR 0.02% INH SOLN 0.5 MG/2.5 ML VIAL INHALATION ×4 (03:41→20:37)
[2020-09-27] MEDS: ALBUTEROL SULFATE NEB 2.5 MG/0.5 ML INH 5 MG INHALATION ×2 (03:41→08:07)
[2020-09-27] MEDS: SODIUM CHLORIDE 0.9% IV 1,000 ML 125 ML IV CONT (06:01)
[2020-09-27] MEDS: methylPREDNISolone SOD SUCC 125 MG VIAL 60 MG IV PUSH (06:02)
[2020-09-27 06:22] LABS: Hematocrit 25.4 % (37.0-47.0); Hemoglobin 7.5 g/dL (12.0-15.0); Mean Corpuscular HGB Conc 29.5 g/dl (32-36); Mean Corpuscular Hemoglobin 30.6 pg (26-34); Mean Corpuscular Volume 103.7 fl (80-100); Mean Platelet Volume 9.9 fl (7.4-10.4); Platelet Count Result 271 k/mm3 (150-375); Red Blood Count 2.45 M/mm3 (4.2-5.4); Red Cell Distribution Width 12.4 % (11.5-14.5); White Blood Count 4.1 K/mm3 (4.5-10.0)
[2020-09-27 06:26] LABS: Blood Urea Nitrogen 25 mg/dL (7-17); Calcium 9.3 mg/dL (8.4-10.2); Carbon Dioxide > 40 mmol/L (22-30); Chloride 98 mmol/L (98-107); Estimated CRCL calculation 19 ml/min; Estimated Glomerular Filt Rate 37; Glucose 133 mg/dL (65-105); Potassium 5.1 mmol/L (3.4-5.0); Sodium 141 mmol/L (137-145)
--- NOTE | 2020-09-27 08:16 | PCRCNOTE ---
Window of time for administration has passed. See next scheduled administration.
[2020-09-27] MEDS: PANTOPRAZOLE 40 MG TABLET PO ×2 (09:11→22:15)
--- NOTE | 2020-09-27 10:33 | PM.CNPUL ---
Assessment and Plan Assessment and plan (1) Pneumonia: Qualifiers: Laterality: left Lung location: lower lobe of lung Pneumonia type: due to unspecified organism Qualified Code(s): J18.9 - Pneumonia, unspecified organism Code(s): J18.9 - Pneumonia, unspecified organism Status: Acute Assessment and Plan: 09/27 Patient was worse shortness of breath, cough, production of yellow-green phlegm with a normal white blood cell count and worsening left lower lobe infiltrate. At this time I will treat patient for community-acquired pneumonia with ceftriaxone and Levaquin. Ceftriaxone has been added today. Blood cultures from 09/26 are pending. A COVID test is pending. (2) COPD, severe: Code(s): J44.9 - Chronic obstructive pulmonary disease, unspecified Status: Acute Assessment and Plan: 09/27 Patient with a history of severe COPD with chronic hypoxic respiratory failure on 5 L oxygen 24 hours a day, PFTs 07/06/2013 with FEV1 0.75 L, 39% predicted, very severe panlobular emphysema on CT scan from 09/23/19. Patient also has elevated serum bicarbonate levels of greater than 40 dating back to at least 09/23/2019. She has an estimated pulmonary arterial pressure of 26 with a normal right atrium and right ventricle on echocardiogram on 11/24/2019. She has an M MRC grade 4 and dyspnea on exertion at 30 ft at home on a good day. She has very diminished breath sounds today but no wheezes. At this time I will continue treating for possible COPD exacerbation and change her Solu-Medrol to p.o. prednisone at 50 po Q day starting 09/28. I will continue nebulized albuterol 2.5 mg Q 6 hours and ipratropium 0.5 mg q.6 hours. Patient with ABG in the emergency department of 7.42/63/60 and chronically elevated serum bicarbonates a greater than 40 dating back to 09/23/2019. Will continue treatment for pneumonia and await COVID testing prior to a trial of nocturnal noninvasive ventilation. Patient has a very poor cough and is unable to cough up her phlegm at this time I will start a cornet valve to aid in mucus expectoration. History of Present Illness History of Present Illness Consult date: 09/27/20 Requesting physician: Roser,Sujata L., PA-C Reason for consult: COPD Chief complaint: Acute hypoxic failure, COPD exacerbation, Narrative: his is a new pulmonary consult for COPD and pneumonia. Patient is a 75-year-old with a history of COPD on 5 L oxygen 24 hours a day, PFTs 07/06/2013 with FEV1 0.75 L, 39% predicted, very severe panlobular emphysema on CT scan from 09/23/19. Patient was recently seen in the emergency room 5 days ago for shortness of breath and had a left lower lobe infiltrate and was prescribed Z-Korey. At that time the patient had a CT angiogram of the chest that was negative for pulmonary embolism but showed very severe upper and lower panlobular emphysema with a left lower lobe infiltrate. Patient returns 09/26 for worsening shortness of breath, chest pain, rigors, and a change in her chronic phlegm color from clear to yellow red green. Patient states that she did not measure her temperature at home. Patient has minimal phlegm production at baseline which is clear and currently has minimal phlegm production but it is now yellow or green. Patient denies any hemoptysis. Patient does state that she sometimes chokes on her food when she does not chew it properly. Patient was seen in the emergency department with a white blood cell count of 6.4, a bicarbonate level greater than 40 and a blood gas on 5 L at demonstrated a pH of 7.42 /63/60. chest x-ray demonstrated worsening left lower lobe infiltrate with a small effusion. And a blood gas on 5 L nasal cannula demonstrated a pH of 7.42/63/60. Patient was admitted to the floor and treated for a pneumonia and COPD exacerbation with Levaquin, Solu-Medrol 60 Q 8, albuterol nebulization and ipratropium nebulization. I was consulted on 09/27 09/25 tonico
[2020-09-27] MEDS: methylPREDNISolone SOD SUCC 40 MG VIAL 60 MG IV PUSH (12:49)
--- NOTE | 2020-09-27 12:52 | PCDIET ---
Note: Spoke with patient via phone due to droplet isolation.
[2020-09-27] MEDS: ALBUTEROL SULFATE NEB 2.5 MG/0.5 ML INH INHALATION ×2 (13:47→20:37)
--- NOTE | 2020-09-27 15:42 | PM.IMPN ---
Progress Note: A&P Assessment and Plan (1) Pneumonia: Qualifiers: Laterality: left Lung location: lower lobe of lung Pneumonia type: due to unspecified organism Qualified Code(s): J18.9 - Pneumonia, unspecified organism Code(s): J18.9 - Pneumonia, unspecified organism Status: Acute Assessment and Plan: Patient has acute worsening community-acquired pneumonia in the left lung, with change in sputum production/green, worsening dyspnea, increased weakness. She head completed a course of outpatient antibiotics with azithromycin without any improvement of her symptoms. With her long history of COPD, chronic respiratory failure, she has been started on IV Levaquin and pulmonology recommended adding IV Rocephin. She is also being treated for acute COPD exacerbation with IV Solu-Medrol 60 mg Q 8, DuoNeb treatments q.6. The patient states she has been COVID vaccinated, but we are COVID swabbing her and she is currently under investigation and under isolation. The patient still requiring 5 L of oxygen via nasal cannula which is her baseline with saturations at 98%. Pulmonology was consulted for further evaluation, recommendations since they have seen her before and due to her severe history of emphysema Appreciate pulmonology is input at this time. Continue monitoring respiratory status, make adjustments if needed (2) Acute exacerbation of chronic obstructive pulmonary disease: Code(s): J44.1 - Chronic obstructive pulmonary disease with (acute) exacerbation Status: Acute Assessment and Plan: She was initially started on IV steroids and breathing treatments q.6. Pulmonology evaluated the patient and is discontinuing her IV Solu-Medrol and putting her on prednisone 50 mg tomorrow morning. Continue DuoNeb treatments at this time. Appreciate pulmonology input. (3) Chronic respiratory failure with hypoxia and hypercapnia: Code(s): J96.11 - Chronic respiratory failure with hypoxia; J96.12 - Chronic respiratory failure with hypercapnia Status: Inactive Assessment and Plan: At her baseline oxygenation of 97% on 5 L via nasal cannula. Continue monitoring with treatment. (4) Person under investigation for COVID-19: Code(s): Z20.822 - Contact with and (suspected) exposure to COVID-19 Status: Acute Assessment and Plan: Pending COVID swab results. (5) Weakness: Code(s): R53.1 - Weakness Status: Acute Assessment and Plan: PT/OT have been ordered. Continue monitoring and discharge planning by care coordination. Time Spent With Patient Time with patient: 25 - 35 minutes Subjective Date/time seen: 09/27/20 15:42 Interval history: Date of service 09/27/2020: Patient reports feeling about the same as when she came in. Still having productive sputum, shortness of breath, weakness and some wheezing. Denies any fevers, chills, chest pain, leg swelling, calf pain, nausea, vomiting, abdominal pain or any other symptoms at this time. Review of Systems Review of Systems: All systems reviewed & are unremarkable except as noted in HPI and below Exam Narrative: Exam Narrative: General: 75-year-old cachectic woman sitting up in bed watching TV. Appears comfortable on 5 L via nasal cannula. In no acute distress. Skin: No jaundice or cyanosis. Good skin turgor. Neck: Full range of motion. Supple. Respiratory: Decreased breath sounds throughout, inspiratory rhonchi to left anterior lung field. Inspiratory wheezing to bilateral lung field. No bony chest wall tenderness. Cardiovascular: The heart has a regular rate and rhythm without murmur. Lower extremities: No lower extremity edema. Distal pulses are easily palp
[2020-09-27 16:46] LABS: Hematocrit 23.8 % (37.0-47.0); Hemoglobin 7.2 g/dL (12.0-15.0)
[2020-09-27 16:59] LABS: Blood Urea Nitrogen 30 mg/dL (7-17); Carbon Dioxide > 40 mmol/L (22-30); Chloride 99 mmol/L (98-107); Estimated CRCL calculation 21 ml/min; Estimated Glomerular Filt Rate 40; Glucose 113 mg/dL (65-105); Potassium 4.6 mmol/L (3.4-5.0); Sodium 141 mmol/L (137-145)
[2020-09-27 17:04] LABS: Transferrin 103 mg/dL (206-381)
[2020-09-27 18:02] LABS: Folic Acid 6.7 ng/mL (2.76->20)
[2020-09-27 18:09] LABS: Iron 45 ug/dL (37-170)
[2020-09-27 18:18] LABS: Percent Iron Saturation 30 % (20-50)
[2020-09-27 19:46] LABS: SARS-CoV-2 RNA PCR Negative
[2020-09-27] MEDS: SALINE 0.65% NAS SOLN 44 ML BTL 1 SPRAY NASAL (22:15)
[2020-09-28] VITALS (21 sets, daily range): BP systolic 122–135; BP diastolic 55–96; PULSE 80–114; RESP 18–28; TEMP 36.3–36.8; O2SAT 91–100
[2020-09-28] MEDS: ALBUTEROL SULFATE NEB 2.5 MG/0.5 ML INH INHALATION ×4 (02:17→19:35)
[2020-09-28] MEDS: IPRATROPIUM BR 0.02% INH SOLN 0.5 MG/2.5 ML VIAL INHALATION ×4 (02:17→19:35)
[2020-09-28 05:42] LABS: Hematocrit 21.7 % (37.0-47.0); Immature Granulocyte Absolute 0.06 K/mm3 (0.00-0.031); Immature Granulocyte Percent A 0.9 % (0-0.5); Lymphocytes Absolute Auto 0.45 K/mm3 (0.9-3.2); Lymphocytes Percent Auto 6.4 % (18.3-44.2); Mean Corpuscular HGB Conc 30.9 g/dl (32-36); Mean Corpuscular Hemoglobin 31.2 pg (26-34); Mean Corpuscular Volume 100.9 fl (80-100); Monocytes Absolute Auto 0.6 K/mm3 (0.1-0.6); Monocytes Percent Auto 9.2 % (2.6-8.5); Neutrophils Absolute Auto 5.8 K/mm3 (1.3-6.7); Neutrophils Percent Auto 83.5 % (45.5-73.1); Platelet Count Result 261 k/mm3 (150-375); Red Blood Count 2.15 M/mm3 (4.2-5.4); Red Cell Distribution Width 12.8 % (11.5-14.5)
[2020-09-28 05:50] LABS: Hemoglobin 6.7 g/dL (12.0-15.0)
[2020-09-28 06:01] LABS: Blood Urea Nitrogen 30 mg/dL (7-17); Calcium 9.3 mg/dL (8.4-10.2); Carbon Dioxide > 40 mmol/L (22-30); Chloride 100 mmol/L (98-107); Estimated CRCL calculation 22 ml/min; Estimated Glomerular Filt Rate 44; Glucose 108 mg/dL (65-105); Potassium 4.7 mmol/L (3.4-5.0); Sodium 143 mmol/L (137-145)
[2020-09-28] MEDS: predniSONE 40 MG, predniSONE 10 MG 50 MG PO (08:30)
[2020-09-28] MEDS: PANTOPRAZOLE 40 MG TABLET PO ×2 (08:31→20:43)
[2020-09-28] MEDS: CYANOCOBALAMIN INJ 1,000 MCG/ML VIAL 1000 MCG IM (10:28)
--- NOTE | 2020-09-28 10:40 | PM.PNPUL ---
Progress Note: A&P Assessment and Plan (1) Pneumonia: Qualifiers: Laterality: left Lung location: lower lobe of lung Pneumonia type: due to unspecified organism Qualified Code(s): J18.9 - Pneumonia, unspecified organism Code(s): J18.9 - Pneumonia, unspecified organism Status: Acute Assessment and Plan: 09/27 Patient was worse shortness of breath, cough, production of yellow-green phlegm with a normal white blood cell count (6.4K) and worsening left lower lobe infiltrate. At this time I will treat patient for community-acquired pneumonia with ceftriaxone and Levaquin (started 09/26). Ceftriaxone has been added today. Blood cultures from 09/26 are pending. A COVID test is pending. 09/28 Continue Levaquin (day 3) and ceftriaxone (day 2), afebrile, white count 7.0. Repeat CXR on 09/29. (2) COPD, severe: Code(s): J44.9 - Chronic obstructive pulmonary disease, unspecified Status: Acute Assessment and Plan: 09/27 Patient with a history of severe COPD with chronic hypoxic respiratory failure on 5 L oxygen 24 hours a day, PFTs 07/06/2013 with FEV1 0.75 L, 39% predicted, very severe panlobular emphysema on CT scan from 09/23/19. Patient also has elevated serum bicarbonate levels of greater than 40 dating back to at least 09/23/2019. She has an estimated pulmonary arterial pressure of 26 with a normal right atrium and right ventricle on echocardiogram on 11/24/2019. She has an M MRC grade 4 and dyspnea on exertion at 30 ft at home on a good day. She has very diminished breath sounds today but no wheezes. At this time I will continue treating for possible COPD exacerbation and change her Solu-Medrol to p.o. prednisone at 50 po Q day starting 09/28. I will continue nebulized albuterol 2.5 mg Q 6 hours and ipratropium 0.5 mg q.6 hours. Patient has a very poor cough and is unable to cough up her phlegm at this time I will start a cornet valve to aid in mucus expectoration. 09/28 Prednisone 50, albuterol 2.5 and ipratroprium 0.5 nebs Q 6 for now. Wean FIO2 to maintain sats 90%-94%. Currently on 2 L with saturations 96%. (3) Chronic respiratory failure with hypercapnia: Code(s): J96.12 - Chronic respiratory failure with hypercapnia Status: Acute Assessment and Plan: 09/28 Patient with chronic hypercarbic respiratory failure from her COPD. ABG in the emergency department of 7.42/63/60 and chronically elevated serum bicarbonates a greater than 40 dating back to 09/23/2019. She would benefit from BiPAP at night to prevent continued deterioration and subsequent hospitalizations. With respirtory therapy at the bedside we attempted BiPAP with full face and full face nasal mask (dreamwear style) and she did not tolerate BiPAP. We then tried AVAPS mode with multiple changes to TV, rise time and rise levels and she could not tolerate any of these settings. She said it was uncomfortable and made her nervous and hyperventilate. She will not tolerate BiPAP or noninvasive ventilation. Subjective Date/time seen: 09/28/20 10:40 Interval history: Narrative: his is a new pulmonary consult for COPD and pneumonia. Patient is a 75-year-old with a history of COPD on 5 L oxygen 24 hours a day, PFTs 07/06/2013 with FEV1 0.75 L, 39% predicted, very severe panlobular emphysema on CT scan from 09/23/19. Patient was recently seen in the emergency room 5 days ago for shortness of breath and had a left lower lobe infiltrate and was prescribed Z-Korey. At that time the patient had a CT angiogram of the chest that was negative for pulmonary embolism but showed very severe upper and lower panlobular emphysema with a left lower lobe infiltrate. Patient returns 09/26 for worsening shortness of breath, chest pain, rigors, and a change in her chronic phlegm color from clear to yellow red green. Patient states that she did not measure her temperature at home. Patient has minimal phlegm production at baseline whic
--- NOTE | 2020-09-28 11:12 | PM.IMPN ---
Progress Note: A&P Assessment and Plan (1) Pneumonia: Qualifiers: Laterality: left Lung location: lower lobe of lung Pneumonia type: due to unspecified organism Qualified Code(s): J18.9 - Pneumonia, unspecified organism Code(s): J18.9 - Pneumonia, unspecified organism Status: Acute Assessment and Plan: The patient is a 75 year old woman presents with acute worsening community-acquired pneumonia in the left lung, with change in sputum production/green, worsening dyspnea, increased weakness. She head completed a course of outpatient antibiotics with azithromycin without any improvement of her symptoms. With her long history of COPD, chronic respiratory failure, she has been started on IV Levaquin and pulmonology recommended adding IV Rocephin. She is also being treated for acute COPD exacerbation with IV Solu-Medrol 60 mg Q 8, DuoNeb treatments q.6. The patient states she has been COVID vaccinated, but we are COVID swabbing her and she is currently under investigation and under isolation. The patient still requiring 5 L of oxygen via nasal cannula which is her baseline with saturations at 98%. Pulmonology was consulted and recommends continuing IV Ceftriaxone (Day #2) and Levaquin (Day #3). Will repeat CXR in the morning. Sputum culture is pending, Blood cultures are negative to date. Appreciate pulmonology is input at this time. Continue monitoring respiratory status, make adjustments if needed (2) Acute exacerbation of chronic obstructive pulmonary disease: Code(s): J44.1 - Chronic obstructive pulmonary disease with (acute) exacerbation Status: Acute Assessment and Plan: She was initially started on IV steroids and breathing treatments q.6. Pulmonology evaluated the patient and is discontinuing her IV Solu-Medrol and put her on prednisone 50 mg (Day #1). Continue DuoNeb treatments at this time. Appreciate pulmonology input. (3) Chronic respiratory failure with hypercapnia: Code(s): J96.12 - Chronic respiratory failure with hypercapnia Status: Acute Assessment and Plan: At her baseline oxygenation of 96% on 2 L via nasal cannula. Pulmonology recommends continuing to wean oxygen as tolerated to keep O2 between 90-94%. Due to ABG showing CO2 63 and elevated serum bicarb >40, he will start the patient on a BiPAP at night which will be started tonight and he will get an ABG in the morning before she is taken off the BiPAP. The patient understands and agrees with the plan. Continue monitoring with treatment. (4) Severe anemia: Code(s): D64.9 - Anemia, unspecified Status: Acute Assessment and Plan: Patient has acute on chronic anemia, Hgb ranges 9-8 normally. On arrival, Hgb was 8.5 and she received copious amounts of IV fluids 125 cc/hr with a wt of 38 kgs, vs MAXIMO. Hgb has decreased today to 6.7. Most likely dilutional, on top of severe B12 deficiency. Normal Iron panel, without any signs of acute blood loss at this time. She is on a PPI, waiting for patient to have a bowel movement to check for Occult blood. Due to severe anemia, will give 1 Unit of PRBCs, repeat H&H Q8hrs. Transfuse if less than 7. (5) Macrocytic anemia with vitamin B12 deficiency: Code(s): D51.8 - Other vitamin B12 deficiency anemias Status: Acute Assessment and Plan: Acute on chronic macrocytic anemia, found to be caused by low vitamin B12 levels. Will be giving IM Cyanocobalamin 1000 mcg daily for 3 days, then she will need PO Cyanocobalamin 1000 mcg daily. On follow-up primary care provider for further evaluation and recheck B12 level in 6 weeks (6) MAXIMO (acute kidney injury): Code(s): N17.9 - Acute kidney failure,
[2020-09-28] MEDS: SODIUM CHLORIDE 0.9% IV 250 ML 30 ML IV CONT (11:32)
--- NOTE | 2020-09-28 11:51 | PCRCNOTE ---
PER DR VALENCIA ATTEMPTED BOTH BIPAP AND AVAPS SETTINGS WITH PT USING BOTH FULL FACE AND UNDER THE NOSE MASK. PT WAS UNABLE TO TOLERATE. DR VALENCIA AT BEDSIDE AND AWARE OF INTOLERANCE. PT REMAINS ON 2LPM NC WITH SPO2 93%
--- NOTE | 2020-09-28 12:01 | PCPTNOTE ---
The patient treatment was not able to be completed on 09/28/20, 1st attempt her O2 level was to low per the PA, & was instructed to try back later, on 2nd attempt patient was getting blood, RN, stated to just let her rest today. Will plan to continue treatment per plan of care.
[2020-09-28] MEDS: SODIUM CHLORIDE NASAL GEL 14.1 GM 1 APPLIC NASAL (20:43)
[2020-09-29] VITALS (13 sets, daily range): BP systolic 120–137; BP diastolic 61–65; PULSE 70–99; RESP 17–28; TEMP 36.6–36.9; O2SAT 89–99
[2020-09-29] MEDS: IPRATROPIUM BR 0.02% INH SOLN 0.5 MG/2.5 ML VIAL INHALATION ×3 (01:16→19:31)
[2020-09-29] MEDS: ALBUTEROL SULFATE NEB 2.5 MG/0.5 ML INH INHALATION ×3 (01:16→19:31)
[2020-09-29 06:15] LABS: Hematocrit 26.8 % (37.0-47.0); Hemoglobin 8.3 g/dL (12.0-15.0); Mean Corpuscular Hemoglobin 30.1 pg (26-34); Mean Corpuscular Volume 97.1 fl (80-100); Mean Platelet Volume 9.9 fl (7.4-10.4); Platelet Count Result 275 k/mm3 (150-375); Red Blood Count 2.76 M/mm3 (4.2-5.4); Red Cell Distribution Width 15.6 % (11.5-14.5); White Blood Count 6.5 K/mm3 (4.5-10.0)
[2020-09-29 06:40] LABS: Blood Urea Nitrogen 29 mg/dL (7-17); Calcium 9.6 mg/dL (8.4-10.2); Carbon Dioxide > 40 mmol/L (22-30); Chloride 100 mmol/L (98-107); Estimated CRCL calculation 21 ml/min; Estimated Glomerular Filt Rate 40; Glucose 89 mg/dL (65-105); Potassium 4.1 mmol/L (3.4-5.0); Sodium 143 mmol/L (137-145)
--- NOTE | 2020-09-29 08:11 | PM.PNPUL ---
Progress Note: A&P Assessment and Plan (1) Pneumonia: Qualifiers: Laterality: left Lung location: lower lobe of lung Pneumonia type: due to unspecified organism Qualified Code(s): J18.9 - Pneumonia, unspecified organism Code(s): J18.9 - Pneumonia, unspecified organism Status: Acute Assessment and Plan: 09/27 Patient was worse shortness of breath, cough, production of yellow-green phlegm with a normal white blood cell count (6.4K) and worsening left lower lobe infiltrate. At this time I will treat patient for community-acquired pneumonia with ceftriaxone and Levaquin (started 09/26). Ceftriaxone has been added today. Blood cultures from 09/26 are pending. A COVID test is pending. 09/28 Continue Levaquin (day 3) and ceftriaxone (day 2), afebrile, white count 7.0. Repeat CXR on 09/29. 09/29 Levaquin day 4, ceftriaxone day 3, afebrile, WBC 6.5, CXR LLL infiltrate unchange to minimally improved and improved left effusion (2) COPD, severe: Code(s): J44.9 - Chronic obstructive pulmonary disease, unspecified Status: Acute Assessment and Plan: 09/27 Patient with a history of severe COPD with chronic hypoxic respiratory failure on 5 L oxygen 24 hours a day, PFTs 07/06/2013 with FEV1 0.75 L, 39% predicted, very severe panlobular emphysema on CT scan from 09/23/19. Patient also has elevated serum bicarbonate levels of greater than 40 dating back to at least 09/23/2019. She has an estimated pulmonary arterial pressure of 26 with a normal right atrium and right ventricle on echocardiogram on 11/24/2019. She has an M MRC grade 4 and dyspnea on exertion at 30 ft at home on a good day. She has very diminished breath sounds today but no wheezes. At this time I will continue treating for possible COPD exacerbation and change her Solu-Medrol to p.o. prednisone at 50 po Q day starting 09/28. I will continue nebulized albuterol 2.5 mg Q 6 hours and ipratropium 0.5 mg q.6 hours. Patient has a very poor cough and is unable to cough up her phlegm at this time I will start a cornet valve to aid in mucus expectoration. 09/28 Prednisone 50, albuterol 2.5 and ipratroprium 0.5 nebs Q 6 for now. Wean FIO2 to maintain sats 90%-94%. Currently on 2 L with saturations 96%. 09/29 Prednisone 50, albuterol 2.5 and ipratroprium 0.5 nebs Q 6 for now. Wean FIO2 to maintain sats 90%-94%. Currently on 3 L with saturations 97%, wean for goal 90-94%. I will perform overnight oximetry tonight on 3 L. If stable overnight possible discharge from pulmonary perspective on these medications: Levaquin 75 mg PO Q day to finish total 10 days (last dose 10/05) Prednisone 50 mg PO to finish total 5 days (last dose 10/02) Beta agonist and muscarinic antagonist that insurance will cover: either Anoro Ellipta 62.5/25 at 1 puff Q day, stiolto respimat 2.5/2.5 at 1 puff BID, combivent respimat at 2 puffs Q 4 HR or separate albuterol and atrovent inhalers at 2 puffs Q 4 HR. Rescue albuterol inhaler at 2 puffs Q 4 PRN Rescue ipratroprium/albuterol nebs Q 4 H PRN Oxygen per home O2 assessment to be performed on 09/30 Overnight oxygen per apnea link on 09/29 (3) Chronic respiratory failure with hypercapnia: Code(s): J96.12 - Chronic respiratory failure with hypercapnia Status: Acute Assessment and Plan: 09/28 Patient with chronic hypercarbic respiratory failure from her COPD. ABG in the emergency department of 7.42/63/60 and chronically elevated serum bicarbonates a greater than 40 dating back to 09/23/2019. She would benefit from BiPAP at night to prevent continued deterioration and subsequent hospitalizations. With respirtory therapy at the bedside we attempted BiPAP with full face and full face nasal mask (dreamwear style) and she did not tolerate BiPAP. We then tried AVAPS mode with multiple changes to TV, rise time and rise levels and she could not tolerate any of these settings. She said it was uncomfortable and made her nervous a
[2020-09-29] MEDS: predniSONE 40 MG, predniSONE 10 MG 50 MG PO (08:21)
[2020-09-29] MEDS: CYANOCOBALAMIN INJ 1,000 MCG/ML VIAL 1000 MCG IM (08:21)
[2020-09-29] MEDS: PANTOPRAZOLE 40 MG TABLET PO ×2 (08:22→20:23)
--- NOTE | 2020-09-29 09:46 | PM.IMPN ---
Progress Note: A&P Assessment and Plan (1) Pneumonia: Qualifiers: Laterality: left Lung location: lower lobe of lung Pneumonia type: due to unspecified organism Qualified Code(s): J18.9 - Pneumonia, unspecified organism Code(s): J18.9 - Pneumonia, unspecified organism Status: Acute Assessment and Plan: The patient is a 75 year old woman presents with acute worsening community-acquired pneumonia in the left lung, with change in sputum production/green, worsening dyspnea, increased weakness. She head completed a course of outpatient antibiotics with azithromycin without any improvement of her symptoms. With her long history of COPD, chronic respiratory failure, she has been started on IV Levaquin and pulmonology recommended adding IV Rocephin. She is also being treated for acute COPD exacerbation with IV Solu-Medrol 60 mg Q 8, DuoNeb treatments q.6. The patient states she has been COVID vaccinated, but we are COVID swabbing her and she is currently under investigation and under isolation. The patient still requiring 5 L of oxygen via nasal cannula which is her baseline with saturations at 98%. Pulmonology was consulted and recommends continuing IV Ceftriaxone (Day #3) and Levaquin (Day #4). Will repeat CXR in the morning. CXR today showed CXR LLL infiltrate unchange to minimally improved and improved left effusion Sputum culture was not preformed, not enough specimen. Blood cultures are negative to date. Possibly discharge tomorrow if continuing to do well. Appreciate pulmonology is input at this time. Continue monitoring respiratory status, make adjustments if needed (2) Acute exacerbation of chronic obstructive pulmonary disease: Code(s): J44.1 - Chronic obstructive pulmonary disease with (acute) exacerbation Status: Acute Assessment and Plan: She was initially started on IV steroids and breathing treatments q.6. Pulmonology evaluated the patient and is discontinuing her IV Solu-Medrol and put her on prednisone 50 mg (Day #2). Continue DuoNeb treatments at this time. Appreciate pulmonology input. (3) Chronic respiratory failure with hypercapnia: Code(s): J96.12 - Chronic respiratory failure with hypercapnia Status: Acute Assessment and Plan: She is on 5L at home with a 25 ft oxygen tubing from her concentrator. Pulmonology recommends continuing to wean oxygen as tolerated to keep O2 between 90-94%. Now patient is on 2L via nc and appears comfortable. Pulmonology would like to monitor oxygenation overnight on 3L via NC. Will see results tomorrow. Continue monitoring with treatment. (4) Severe anemia: Code(s): D64.9 - Anemia, unspecified Status: Acute Assessment and Plan: Patient has acute on chronic anemia, Hgb ranges 9-8 normally. On arrival, Hgb was 8.5 and she received copious amounts of IV fluids 125 cc/hr with a wt of 38 kgs, vs MAXIMO. Hgb has decreased to 6.7 09/28/20. She was given 1 unit of PRBCs with improvement of her H&H. Most likely dilutional, on top of severe B12 deficiency. Normal Iron panel, without any signs of acute blood loss at this time. She is on a PPI, waiting for patient to have a bowel movement to check for Occult blood. Continue monitoring. Repeat H&H Q8hrs. Transfuse if less than 7. (5) Macrocytic anemia with vitamin B12 deficiency: Code(s): D51.8 - Other vitamin B12 deficiency anemias Status: Acute Assessment and Plan: Acute on chronic macrocytic anemia, found to be caused by low vitamin B12 levels. Will be giving IM Cyanocobalamin 1000 mcg daily for 3 days, then she will need PO Cyanocobalamin 1000 mcg daily. On follow-up primary care provider for further evaluation and recheck B12 level in 6
[2020-09-29] MEDS: DOCUSATE SODIUM 100 MG CAPSULE PO ×2 (10:56→20:23)
[2020-09-29] MEDS: polyethylene glycoL 3350 17 GM POWD.PACK PO ×2 (10:56→17:07)
[2020-09-29 13:05] LABS: Hematocrit 29.5 % (37.0-47.0); Hemoglobin 9.3 g/dL (12.0-15.0)
--- NOTE | 2020-09-29 15:41 | PCRCNOTE ---
Window of time for administration has passed. See next scheduled administration.
[2020-09-29] MEDS: SODIUM CHLORIDE NASAL GEL 14.1 GM 1 APPLIC NASAL (20:23)
[2020-09-29 21:08] LABS: Hematocrit 30.8 % (37.0-47.0); Hemoglobin 9.7 g/dL (12.0-15.0)
[2020-09-30] VITALS (11 sets, daily range): BP systolic 114–129; BP diastolic 53–61; PULSE 68–96; RESP 17–20; TEMP 36.9; O2SAT 80–100
[2020-09-30] MEDS: BISACODYL 10 MG SUPPOSITORY RECTAL (05:15)
[2020-09-30 05:51] LABS: Hematocrit 32.3 % (37.0-47.0); Hemoglobin 10.1 g/dL (12.0-15.0)
[2020-09-30 06:12] LABS: Blood Urea Nitrogen 29 mg/dL (7-17); Calcium 9.8 mg/dL (8.4-10.2); Carbon Dioxide > 40 mmol/L (22-30); Chloride 98 mmol/L (98-107); Estimated CRCL calculation 27 ml/min; Estimated Glomerular Filt Rate 54; Glucose 98 mg/dL (65-105); Potassium 4.4 mmol/L (3.4-5.0); Sodium 142 mmol/L (137-145)
[2020-09-30] MEDS: ALBUTEROL SULFATE NEB 2.5 MG/0.5 ML INH INHALATION (08:35)
[2020-09-30] MEDS: IPRATROPIUM BR 0.02% INH SOLN 0.5 MG/2.5 ML VIAL INHALATION (08:35)
--- NOTE | 2020-09-30 09:46 | ECG_ITS ---
Measurements Intervals [place] Rate: 90 P: 69 AR: 136 QRS: 63 QRSD: 117 T: 52 QT: 341 QTc: 418 Interpretive Statements SINUS RHYTHM INCOMPLETE RIGHT BUNDLE BRANCH BLOCK MINIMAL Q WAVES- LAT/HIGH LAT LEADS BASELINE ARTIFACT- V2-V3 BORDERLINE ECG Electronically Signed On 09-30-2020 13:22:03 CDT by Moises Prieto D.O.
[2020-09-30] MEDS: PANTOPRAZOLE 40 MG TABLET PO (09:58)
--- NOTE | 2020-09-30 10:13 | PM.PNPUL ---
Progress Note: A&P Assessment and Plan (1) Pneumonia: Qualifiers: Laterality: left Lung location: lower lobe of lung Pneumonia type: due to unspecified organism Qualified Code(s): J18.9 - Pneumonia, unspecified organism Code(s): J18.9 - Pneumonia, unspecified organism Status: Acute Assessment and Plan: 09/27 Patient was worse shortness of breath, cough, production of yellow-green phlegm with a normal white blood cell count (6.4K) and worsening left lower lobe infiltrate. At this time I will treat patient for community-acquired pneumonia with ceftriaxone and Levaquin (started 09/26). Ceftriaxone has been added today. Blood cultures from 09/26 are pending. A COVID test is pending. 09/28 Continue Levaquin (day 3) and ceftriaxone (day 2), afebrile, white count 7.0. Repeat CXR on 09/29. 09/29 Levaquin day 4, ceftriaxone day 3, afebrile, WBC 6.5, CXR LLL infiltrate unchange to minimally improved and improved left effusion 09/30 Levaquin day 5 and ceftriaxone day 4. (2) COPD, severe: Code(s): J44.9 - Chronic obstructive pulmonary disease, unspecified Status: Acute Assessment and Plan: 09/27 Patient with a history of severe COPD with chronic hypoxic respiratory failure on 5 L oxygen 24 hours a day, PFTs 07/06/2013 with FEV1 0.75 L, 39% predicted, very severe panlobular emphysema on CT scan from 09/23/19. Patient also has elevated serum bicarbonate levels of greater than 40 dating back to at least 09/23/2019. She has an estimated pulmonary arterial pressure of 26 with a normal right atrium and right ventricle on echocardiogram on 11/24/2019. She has an M MRC grade 4 and dyspnea on exertion at 30 ft at home on a good day. She has very diminished breath sounds today but no wheezes. At this time I will continue treating for possible COPD exacerbation and change her Solu-Medrol to p.o. prednisone at 50 po Q day starting 09/28. I will continue nebulized albuterol 2.5 mg Q 6 hours and ipratropium 0.5 mg q.6 hours. Patient has a very poor cough and is unable to cough up her phlegm at this time I will start a cornet valve to aid in mucus expectoration. 09/28 Prednisone 50, albuterol 2.5 and ipratroprium 0.5 nebs Q 6 for now. Wean FIO2 to maintain sats 90%-94%. Currently on 2 L with saturations 96%. 09/29 Prednisone 50, albuterol 2.5 and ipratroprium 0.5 nebs Q 6 for now. Wean FIO2 to maintain sats 90%-94%. Currently on 3 L with saturations 97%, wean for goal 90-94%. I will perform overnight oximetry tonight on 3 L. 09/30 Patient is at her baseline, Minimal cough and phlegm. Overnight oximetry on 3 L nasal cannula demonstrated average saturation 98%, lowest saturation 87%. Time with saturation less than or equal to 88% was registered as 0 minutes. Stable for discharge from pulmonary perspective on these medications: Levaquin 750 mg PO Q day to finish total 10 days (first dose today and last dose 10/05) Prednisone 50 mg PO to finish total 5 days (last dose 10/02) Beta agonist and muscarinic antagonist that insurance will cover: either Anoro Ellipta 62.5/25 at 1 puff Q day, stiolto respimat 2.5/2.5 at 1 puff BID, combivent respimat at 2 puffs Q 4 HR or separate albuterol and atrovent inhalers at 2 puffs Q 4 HR. Rescue albuterol inhaler at 2 puffs Q 4 PRN Rescue ipratroprium/albuterol nebs Q 4 H PRN Oxygen per home O2 assessment to be performed on 09/30 3L Overnight oxygen per apnea link on 09/29 Discussed with Sujata Schafer Follow up in pulmonary clinic 3-4 weeks, I gave her our business card and informed our lambskin trimmer. (3) Chronic respiratory failure with hypercapnia: Code(s): J96.12 - Chronic respiratory failure with hypercapnia Status: Acute Assessment and Plan: 09/28 Patient with chronic hypercarbic respiratory failure from her COPD. ABG in the emergency department of 7.42/60 and chronically elevated serum bicarbonates a greater than 40 dating back to 09/23/2019. She would benefit
[2020-09-30 10:29] LABS: Troponin I < 0.012 ng/mL (0.000-0.034)
--- NOTE | 2020-09-30 11:08 | PCNFU ---
Nutrition Follow-Up Complete: Underweight related to chronic inadequate kcal intake as evidenced by patient statements, BMI of 15.6. Goal: Patient will consume 75% of meals/supplements or greater. Patient is progressing towards goal. We will continue current goal. Pt current nutrition is Regular with Ensure Enlive once daily. Last recorded weight is 38.6 kg,no new weight to report. Bowel Motility:No BM reported. Labs Reviewed:GFR 54,Hct 32.3,Hgb 10.1 Meds Noted:Miralax,Colace,Dulcolax,Rocephin,Levaquin,Albuterol, Protonix Additional Notes: Patient seen today for nutrition follow up. Patient is consuming 75% of a Regular diet. Ensure Enlive once daily is providing an additional 350 kcals and 20 gms protein. Agree with diet orders. Monitoring; Follow up in 5 days.
--- NOTE | 2020-09-30 11:48 | HOMEO2EVAL ---
Evaluation was performed at [facility] Home Oxygen Evaluation RC: Home Oxygen (O2) Evaluation Start: 09/30/20 08:58 Freq: ONCE Status: Active Protocol: RPE Activity Type Activity Date Activity User E-Sign Co-Sign Detail Recorded Client Recorded Date Recorded By Document 09/30/20 11:23 KRM [id number] 09/30/20 11:48 KRM Document 09/30/20 11:25 KRM [email or web address] 09/30/20 11:48 KRM Document 09/30/20 11:29 KRM [email or web address] 09/30/20 11:48 KRM Document 09/30/20 11:32 [email or web address] [email or web address] 09/30/20 11:48 KRM Document 09/30/20 11:34 KRM [email or web address] 09/30/20 11:48 KRM 09/30/20 09/30/20 09/30/20 11:23 11:25 11:29 Home O2 Evaluation Test Phase Resting Resting Resting Oxygen Delivery Room Air Nasal Cannula Nasal Cannula Oxygen Flow Rate (L/min) 2 3 Pulse Oximetry (90-100 %) 80 L 94 92 Pulse Rate (60-100 beats/min) 92 90 89 Activity Tolerance Ambulation Distance (feet) Home Oxygen Evaluation Comments Treatment Charges O2 Evaluation - Inpatient 09/30/20 09/30/20 11:32 11:34 Home O2 Evaluation Test Phase Exercise Exercise Oxygen Delivery Nasal Cannula Nasal Cannula Oxygen Flow Rate (L/min) 3 3 Pulse Oximetry (90-100 %) 92 92 Pulse Rate (60-100 beats/min) 87 90 Activity Tolerance Fair Fair Ambulation Distance (feet) 25 Home Oxygen Evaluation Comments 3lpm at rest and with activity. Treatment Charges
--- NOTE | 2020-09-30 12:02 | PCRCNOTE ---
HOME O2 EVALUATION DONE. PT. REQUIRES 3LPM AT REST AND WITH ACTIVITY. PT. IS ESTABLISHED WITH [facility] ALREADY. FAXED UPDATED INFO TO [phone]. PT. DAUGHTER WILL BRING TANK TO GET PT. HOME.
--- NOTE | 2020-09-30 12:14 | PM.DS ---
DS: Admitting Diagnosis Admitting Diagnosis Admitting Diagnosis: SOB DS: Discharge Diagnosis Discharge Diagnosis (1) Pneumonia: Qualifiers: Laterality: left Lung location: lower lobe of lung Pneumonia type: due to unspecified organism Qualified Code(s): J18.9 - Pneumonia, unspecified organism Code(s): J18.9 - Pneumonia, unspecified organism Status: Acute Assessment and Plan: The patient is a 75 year old woman presents with acute worsening community-acquired pneumonia in the left lung, with change in sputum production/green, worsening dyspnea, increased weakness. She head completed a course of outpatient antibiotics with azithromycin without any improvement of her symptoms. With her long history of COPD, chronic respiratory failure, she has been started on IV Levaquin and pulmonology recommended adding IV Rocephin. She is also being treated for acute COPD exacerbation with IV Solu-Medrol 60 mg Q 8, DuoNeb treatments q.6. COVID swab negative. The patient's breathing improved throughout her hospitalization. Pulmonology evaluated her and switch her from IV Solu-Medrol to prednisone daily. Antibiotics were continued. She was feeling much better today and Pulmonology evaluated the patient and feels she is stable for discharge with Levaquin 750 mg QD with last dose on 10/05, Prednisone 50 mg QD with last dose on 10/02, Anoro Ellipta 62.5/25 at 1 puff every day, albuterol inhaler at 2 puffs every 4 hours PRN for shortness of breath or wheezing, ipratroprium/albuterol nebulizer every 4 hours PRN for shortness of breath or wheezing. She has a follow-up with the copy editor in 3-4 weeks. She had a home oxygen evaluation showing she needs 3 L of oxygen at rest and with exertion. The patient had an apnea link overnight on 3 L of oxygen, and pulmonology agrees with her being on 3 L of oxygen at night since she was unable to tolerate the BiPAP. Told patient and family that she needs to keep her oxygen saturation between 90-95% due to underlying COPD. Sputum culture was not preformed, not enough specimen. Blood cultures are negative to date. Patient was also found to have acute on chronic macrocytic anemia, found to be caused by low vitamin B12 levels. She was given IM Cyanocobalamin 1000 mcg daily for 3 days, then she will need PO Cyanocobalamin 1000 mcg daily. She required 1 Unit of PRBCs 09/28/20. H&H today much improved at 10/32%. Continue B12. Recheck CBC in 1 week. Follow up with PCP. 09/30/20- I was called by the nurse who told with the patient was having chest pain. I went to evaluate the patient who was reporting left upper and side chest pain. She states she was up walking with therapy, went to the bathroom, and was doing some arm exercises before her pain began. In her bed she is lifting her arms up and down showing me which type of exercises she was doing and she reproduced her chest pain. She also has tenderness to palpation of her left chest wall. I eric a troponin which was normal, EKG showing no acute changes from arrival and chest x-ray showing no worsening of her pneumonia. The nurse was going to administer some Tylenol for her pain but the patient declined and said it was already better. Pleuritic chest pain, did not believe it was any ACS. Told her to use a heating pad or Tylenol as needed for discomfort when she is discharged home. The patient understands and agrees the plan all questions answered. (2) Acute exacerbation of chronic obstructive pulmonary disease: Code(s): J44.1 - Chronic obstructive pulmonary disease with (acute) exacerbation Status: Acute Assessment and Plan: (3) Chronic respiratory failure with hypercapnia: Code(s): J96.12 - Chronic respiratory failure with hypercapnia Status: Acute Assessment and Plan: (
[2020-09-30 15:42] LABS: Pneumococcal Antigen Urine Not Detected (Not Detected)
[2020-10-01 16:09] LABS: Legionella pneumophila Ag Ur Not Detected (Not Detected)
--- NOTE | 2020-10-06 13:12 | PC.NURSE ---
Blood cx are negative.
== END 2020-09-30 14:25 | disposition home or self-care (01) | DRG 194 ==
LOC: ANHED 18:01 → ANH3MEDSUR 09-27 01:31
PROVIDERS: Internal Medicine; Admitting Provider Internal Medicine; Emergency Provider Emergency Medicine; PCP Family Medicine; Visit Provider Physician Assistant
DX: J18.9 Pneumonia, unspecified organism (principal); J96.12 Chronic respiratory failure with hypercapnia; J96.11 Chronic respiratory failure with hypoxia; E46 Unspecified protein-calorie malnutrition; Z68.1 Body mass index [BMI] 19.9 or less, adult; J98.11 Atelectasis; N17.9 Acute kidney failure, unspecified; Z20.822 Contact with and (suspected) exposure to COVID-19; K21.00 Gastro-esophageal reflux disease with esophagitis, without bleeding; Z86.718 Personal history of other venous thrombosis and embolism; M81.0 Age-related osteoporosis without current pathological fracture; F17.210 Nicotine dependence, cigarettes, uncomplicated; Z99.81 Dependence on supplemental oxygen; E53.8 Deficiency of other specified B group vitamins; J43.1 Panlobular emphysema; D53.9 Nutritional anemia, unspecified; K59.00 Constipation, unspecified
CPT/HCPCS: 36415; 36430; 36600; 71045; 74018; 80048; 80053; 81001; 82607; 82728; 82746; 82805; 83540; 83550; 83735; 83880; 84466; 84484; 85014; 85018; 85025; 85027; 85610; 85730; 86850; 86880; 86900; 86901; 86902; 86922; 87040; 87070; 87205; 87449; 87899; 93005; 94618; 94640; 94667; 94668; 94762; 96374; 97116; 97162; 97165; 97530; 99285; A9270; C9803; J0696; J1956; J2920; J2930; J3420; J7030; J7050; J7512; P9016; U0003; U0005